=== PATIENT | female | born 1970 | race Caucasian/White ===

== ENCOUNTER 2016-04-21 23:50 | Emergency (ER) | payer OTHER ==
[~2016-04-21] VITALS: Ht 151.1 cm; Wt 142.0 kg
[~2016-04-21 23:50] MED LIST: ADVIN10/60 INH; AZEL30SP NAE; CETITAB27 PO; IBUP-1277 PO; PARO10TA PO; PARO1TAB29 PO
[2016-04-22 00:03] VITALS: BP 160/100; PULSE 95; TEMP 37.1; O2SAT 97; Ht 151.1 cm; Wt 142.0 kg
--- NOTE | 2016-04-22 00:13 | EMERGENCY ROOM VISIT NOTE ---
History Report prepared by Scribbonita: Jacob Jordan Under the Supervision of: Dr. Rell Lee D.O. First contact with patient: 00:02 Chief Complaint: FACIAL PAIN/INJURY Stated Complaint: FACIAL SWELLING - POSSIBLE ABCESS TOOTH History of Present Illness The patient is a 45 year old female who presents to the Emergency Room with complaints of worsening facial swelling on the right side since yesterday. The patient had a dental procedure for a tooth on the right upper side four weeks ago. She had the tooth removed, nerve scraped, and a cone placed. She has a follow up appointment with her dentist in three days. The patient does not have significant dental pain unless she chews food on the right side. She denies any fevers. Source of History: patient Onset: yesterday Position: other (face, right side) Quality: other (swelling) Timing: worsening Associated Symptoms: No fevers Review of Systems See HPI for pertinent positives and negatives. A total of ten systems were reviewed and were otherwise negative. Past Medical & Surgical Medical Problems: (1) Thyroid dysfunction Surgical Problems: (1) H/O removal of cyst Family History FH: cancer FH: diabetes mellitus FH: hypertension FH: seizures Social History Smoking Status: Current Every Day Smoker Alcohol Use: none Marital Status: Housing Status: lives with family Occupation Status: unemployed Current/Historical Medications Scheduled Azelastine Hcl-Fluticasone Pro (Dymista), 2 SPRY TANI BID Cetirizine/Pseudoephedrine (Zyrtec-D Er 5MG/120MG), 1 TAB PO Q12H Clindamycin Hcl (Cleocin), 300 MG PO TID Fluticasone Prop/Salmeterol (Advair Diskus 100/50 60 Dose), 1 PUFFS INH BID Paroxetine (Paxil), 40 MG PO DAILY Paroxetine Hcl (Paxil), 10 MG PO DAILY Scheduled PRN Ibuprofen (Advil), 400-600 MG PO Q6H PRN for Pain or Fever Allergies Coded Allergies: Penicillins (Verified Allergy, Unknown, Unknown, 07/21/15) Reported by PT Vitamin B12 (Verified Adverse Reaction, Intermediate, NEURO SYMPTOMS, 07/20) Codeine (Verified Adverse Reaction, Unknown, Nausea/Vomiting, 07/21/15) Reported by PT Physical Exam Vital Signs Date Time Temp Pulse Resp B/P Pulse Ox O2 Delivery O2 Flow Rate FiO2 04/22/16 00:03 37.1 95 18 160/100 97 Room Air Physical Exam GENERAL: Awake, alert, well-appearing, in no distress HENT: Normocephalic, atraumatic. Facial edema right side with maxillary sinus tenderness. Oropharynx: No angioedema, no obvious gingival abscess, tenderness to the right upper molars with dental bridge present. EYES: Normal conjunctiva. Sclera non-icteric. NECK: Supple. No nuchal rigidity. FROM. No JVD. No lymphadenopathy. RESPIRATORY: Clear to auscultation. CARDIAC: Regular rate, normal rhythm. Extremities warm and well perfused. Pulses equal. ABDOMEN: Soft, non-distended. No tenderness to palpation. No rebound or guarding. No masses. RECTAL: Deferred. MUSCULOSKELETAL: Chest examination reveals no tenderness. The back is symmetrical on inspection without obvious abnormality. There is no CVA tenderness to palpation. No joint edema. LOWER EXTREMITIES: Calves are equal size bilaterally and non-tender. No edema. No discoloration. NEURO: Normal sensorium. No sensory or motor deficits noted. SKIN: No rash or jaundice noted. Medical Decision & Procedures Medications Administered Medications (Trade) Dose Ordered Sig/Heath Route Start Time Stop Time Status Last Admin Dose Admin Clindamycin HCl (Cleocin Cap) 300 mg ONE ONCE PO 04/22/16 00:15 04/22/16 00:16 04/22/16 00:15 300 MG ED Course 0003: The patient was evaluated in room C10. A complete history and physical exam was performed. 0015: Clindamycin HCl 300 mg PO. 0015: Discussed the discharge instructions with the patient. She verbalized understanding. The patient is ready for discharge. Medical Decision Differential diagnosis: Dental caries, pulpitis, gingival abscess, sinusitis. Patient will be treated with antibiotics has follow-up with dentist this week. No signs of sepsis clinically Impression Primary Impression: Dental caries Scribe Attestation The scribe's documentation has been prepared under my direction and personally reviewed by me in its entirety. I confirm that the note above accurately reflects all work, treatment, procedures, and medical decision making performed by me. Departure Information Dispostion Home / Self-Care Prescriptions Clindamycin Hcl (CLEOCIN) 300 Mg Cap 300 MG PO TID for 10 Days, CAP Prov: Rell Lee, DO 04/22/16 Referrals Dante Echeverria M.D. (PCP) Forms HOME CARE DOCUMENTATION FORM, IMPORTANT VISIT INFORMATION Patient Instructions ED Abscess Dental, [facility]
[2016-04-22] MEDS ORDERED: CLINDAMYCIN HCL 150 MG CAP PO ONE (00:15)
[2016-04-22] MEDS ORDERED: CLIN300C2 PO (00:15)
[2016-04-22] MEDS ORDERED: SNG10 PO (00:26)
[2016-04-22] MEDS ORDERED: ATV5X PO (00:27)
[2016-04-22] MEDS ORDERED: ASTN NAE (00:28)
[2016-04-22] MEDS ORDERED: VNTHFA/IN PO (00:28)
== END 2016-04-22 00:23 | disposition home or self-care (01) ==
LOC: C.EDB 23:51 → C.EDC 04-22 00:23
DX: K02.9 Dental caries, unspecified (principal); E07.9 Disorder of thyroid, unspecified; F17.200 Nicotine dependence, unspecified, uncomplicated; Z98.890 Other specified postprocedural states; Z88.0 Allergy status to penicillin; Z88.5 Allergy status to narcotic agent; Z88.8 Allergy status to other drugs, medicaments and biological substances; Z80.9 Family history of malignant neoplasm, unspecified; Z83.3 Family history of diabetes mellitus; Z82.49 Family history of ischemic heart disease and other diseases of the circulatory system; Z82.0 Family history of epilepsy and other diseases of the nervous system

== ENCOUNTER → 2016-06-28 | Outpatient (CLI) | payer OTHER ==
[~2016-06-28] MED LIST changes: +ASTN NAE; +ATV5X PO; -AZEL30SP NAE; +LEVO5TAB7 PO; +NYSTCRE11; +PROB1CAP PO; +RANI300T2 PO; +SNG10 PO; +TRAM-10 PO; +VNTHFA/IN PO; +[UNRECOGNIZED DRUG - OTHER] PO
--- NOTE | 2016-06-28 14:33 | DIAGNOSTIC IMAGING REPORT ---
CT ABDOMEN NO IV/ORAL CONT (CT) CT DOSE: 1113.17 mGy.cm CLINICAL HISTORY: Periumbilical pain and palpable mass. TECHNIQUE: Images the upper abdomen were performed without intravenous or oral contrast. COMPARISON STUDY: None. FINDINGS: The visualized portions of the lung bases are unremarkable. There is hepatic steatosis. No focal hepatic masses are visualized. The liver is enlarged measuring excess of 21 cm in length. No gallbladder abnormalities are visualized. No splenic masses are visualized. No pancreatic masses are visualized in this noncontrast study. No adrenal masses are visualized. No renal calculi are visualized. No renal masses are visualized this noncontrast study. There is no hydronephrosis. There is no evidence of abdominal aortic aneurysm. There is no pathologic bowel dilatation within the upper abdomen. There is no pathologic adenopathy There is rectus diastases. IMPRESSION: 1. Hepatomegaly and hepatic steatosis. 2. No acute findings. Electronically signed by: Oli Pink M.D. 06/28/2016 2:32 PM Dictated Date/Time: 06/28/2016 2:29 PM
== END | disposition home or self-care (01) ==
LOC: C.CTS 14:04
PROVIDERS: ATTEND Internal Medicine
DX: R10.9 Unspecified abdominal pain (principal); K76.0 Fatty (change of) liver, not elsewhere classified

== ENCOUNTER → 2016-07-25 | Outpatient (CLI) | payer OTHER ==
[2016-07-25 18:54] LABS: ALKALINE PHOSPHATASE 76 U/L (45-117); ALT/SGPT 43 U/L (12-78); AST/SGOT 21 U/L (15-37)
== END | disposition home or self-care (01) ==
LOC: C.LABBFT 17:40
PROVIDERS: ATTEND Physician Assistant Medical
DX: K76.0 Fatty (change of) liver, not elsewhere classified (principal)

== ENCOUNTER → 2016-07-31 | Outpatient (CLI) | payer OTHER | LOC: C.RDSM 17:15 | PROVIDERS: ATTEND Physical Medicine & Rehabilitation Sports Medicine | DX: M79.604 Pain in right leg (principal) ==

== ENCOUNTER → 2016-08-01 | Outpatient (CLI) | payer OTHER ==
[2016-08-01 18:07] LABS: URINE APPEARANCE CLEAR (CLEAR); URINE BILIRUBIN NEG (NEG); URINE COLOR YELLOW; URINE EPITHELIAL CELL AUTO >30 /lpf (0-5); URINE NITRITE NEG (NEG); UROBILINOGEN NEG (NEG)
[2016-08-01 18:22] LABS: MANUAL MICROSCOPIC REQUIRED? NO; REVIEW REQ? YES
== END | disposition home or self-care (01) ==
LOC: C.LABBFT 11:48
PROVIDERS: ATTEND Physician Assistant Medical
DX: R39.9 Unspecified symptoms and signs involving the genitourinary system (principal)

== ENCOUNTER → 2016-08-27 | Outpatient (CLI) | payer OTHER ==
[~2016-08-27] MED LIST changes: -LEVO5TAB7 PO; -NYSTCRE11; -PROB1CAP PO; -RANI300T2 PO; -TRAM-10 PO; -[UNRECOGNIZED DRUG - OTHER] PO
[2016-08-27 18:42] LABS: PREG INTERNAL NEGATIVE QC NEG CLEAR BACKGROUND; PREG INTERNAL POSITIVE QC POS CONTROL LINE
[2016-08-30 13:56] LABS: HERPES SIMPLEX CULT SOURCE GENITAL-VULVA; HERPES SIMPLEX VIRUS CULT NOT ISOLATED (NOT ISOLATED)
== END | disposition home or self-care (01) ==
LOC: C.LABSPEC 17:32
PROVIDERS: ATTEND Physician Assistant
DX: N91.2 Amenorrhea, unspecified (principal); N76.0 Acute vaginitis; N76.6 Ulceration of vulva

== ENCOUNTER → 2016-08-27 | Outpatient (CLI) | payer OTHER | END | disposition home or self-care (01) | LOC: C.PAPS 08:46 | PROVIDERS: ATTEND Physician Assistant | DX: Z01.419 Encounter for gynecological examination (general) (routine) without abnormal findings (principal) ==

== ENCOUNTER → 2016-08-27 | Outpatient (CLI) | payer OTHER ==
[2016-08-27 17:12] LABS: PROLACTIN 3.68 ng/mL
[2016-09-04 12:45] LABS: HERPES SIMPLEX AB IGG-2 < 0.90 INDEX (< 0.90); HSV1 AB IGM Negative (Negative); HSV2 AB IGM Negative (Negative)
== END | disposition home or self-care (01) ==
LOC: C.LAB1850 15:17
PROVIDERS: ATTEND Physician Assistant
DX: N76.6 Ulceration of vulva (principal); N91.2 Amenorrhea, unspecified

== ENCOUNTER → 2016-08-28 | Outpatient (CLI) | payer OTHER ==
--- NOTE | 2016-08-29 13:32 | DIAGNOSTIC IMAGING REPORT ---
THORACIC SPINE 3-VIEWS CLINICAL HISTORY: BACK PAIN ASSOCIATED WITH PERIPHERAL NUMBNESS COMPARISON STUDY: No previous studies for comparison. FINDINGS: No acute fractures or subluxations are visualized. There are multilevel degenerative changes with lateral anterior osteophytes. No erosive or destructive changes are visualized. There is a minimal spinal curvature IMPRESSION: Multilevel degenerative change. No fractures or destructive lesions are visualized Electronically signed by: Oli Pink M.D. 08/29/2016 1:30 PM Dictated Date/Time: 08/29/2016 1:29 PM
== END | disposition home or self-care (01) ==
LOC: C.RDSM 14:01
PROVIDERS: ATTEND Physical Medicine & Rehabilitation Sports Medicine
DX: M54.9 Dorsalgia, unspecified (principal)

== ENCOUNTER → 2016-09-17 | Outpatient (CLI) | payer OTHER ==
[2016-09-17 12:24] LABS: BASO % 0.3 %; BASO ABS # 0.02 K/uL (0-0.2); COMPLETE YES; HEMATOCRIT 45.2 % (37-47); IG% 0.3 %; LYMPH % 36.7 %; LYMPH ABS # 2.84 K/uL (1.2-3.4); MEAN CELL VOLUME 84.5 fL (80-100); MEAN CORPUSCULAR HEMOGLOBIN 27.3 pg (25-34); MEAN CORPUSCULAR HGB CONC 32.3 g/dl (32-36); MEAN PLATELET VOLUME 11.2 fL (7.4-10.4); MONO % 6.6 %; NEUT % 52.1 %; PLATELET COUNT 269 K/uL (130-400); RED BLOOD COUNT 5.35 M/uL (4.2-5.4); WHITE BLOOD COUNT 7.74 K/uL (4.8-10.8)
[2016-09-17 18:13] LABS: ALT/SGPT 45 U/L (12-78); BLOOD UREA NITROGEN 7 mg/dl (7-18); BUN/CREATININE RATIO 8.3 (10-20); CALCIUM 9.6 mg/dl (8.5-10.1); CARBON DIOXIDE 29 mmol/L (21-32); CHLORIDE 105 mmol/L (98-107); CREATININE 0.88 mg/dl (0.60-1.20); GLUCOSE 109 mg/dl (70-99); MAGNESIUM 2.4 mg/dl (1.8-2.4); POTASSIUM 4.1 mmol/L (3.5-5.1); SODIUM 140 mmol/L (136-145)
[2016-09-17 18:17] LABS: ALB/GLOB RATIO 1.1 (0.9-2); ALKALINE PHOSPHATASE 81 U/L (45-117); AST/SGOT 24 U/L (15-37); TOTAL IRON BINDING CAPACITY 379 mcg/dl (250-450)
--- NOTE | 2016-09-23 10:58 | CODING QUERY MEDICAL NECESSITY ---
CQSUPPORTING DIAGNOSIS NEEDED A supporting diagnosis is required for the test/procedure performed on this patient in order for us to be reimbursed by the patient's insurance. Please provide a supporting diagnosis for the following test/procedure listed below next to the test name along with your signature. *If there is no additional diagnosis for this patient that would support the following test/procedure please document that below next to the test/procedure. Test(s)/Procedure(s) that require a supporting diagnosis: DOS 09/17/16 VITAMIN D TEST ORDERED BY TONNY RUIZ Provider Signature: Date: Thank you Renae Ordaz Health Information Management Once completed, please kindly fax back to [phone] For questions please call [phone]
== END | disposition home or self-care (01) ==
LOC: C.LABBFT 11:09
PROVIDERS: ATTEND Physician Assistant Medical
DX: R25.2 Cramp and spasm (principal); R53.83 Other fatigue

== ENCOUNTER → 2016-09-19 | Outpatient (CLI) | payer OTHER ==
[2016-09-24 11:53] LABS: HERPES SIMPLEX CULT SOURCE GENITAL-VULVA; HERPES SIMPLEX VIRUS CULT NOT ISOLATED (NOT ISOLATED)
== END | disposition home or self-care (01) ==
LOC: C.LABSPEC 11:42
PROVIDERS: ATTEND Obstetrics & Gynecology
DX: N76.6 Ulceration of vulva (principal); N76.2 Acute vulvitis

== ENCOUNTER → 2016-10-02 | Outpatient (CLI) | payer OTHER ==
--- NOTE | 2016-10-02 10:45 | DIAGNOSTIC IMAGING REPORT ---
Brain MRI WITHOUT CONTRAST HISTORY: R51 Worsening headaches [id number] TECHNIQUE: Multiplanar multisequence MRI of the brain was performed without the use of contrast. COMPARISON STUDY: None. FINDINGS: There are no areas of restricted diffusion to suggest acute infarction. Incidental note is made of a partially empty sella which is considered a normal variant. Otherwise, the midline structures are intact. A few opacified right inferior mastoid air cells. Small retention cysts within the left ethmoid sinus. No fluid levels within the paranasal sinuses. The ventricles and sulci are within normal limits for age. There is no mass, hematoma, midline shift. The major vascular flow-voids at the skull base are well maintained. A 7 mm hypointense subcutaneous nodule at the high convexity of the scalp. This favors a focal calcification or sebaceous cyst. IMPRESSION: No significant intracranial abnormality. Electronically signed by: Adam Yip M.D. 10/02/2016 10:44 AM Dictated Date/Time: 10/02/2016 10:36 AM
== END | disposition home or self-care (01) ==
LOC: C.MRI 09:38
PROVIDERS: ATTEND Psychiatry & Neurology Neurology
DX: R51 Headache (principal)

== ENCOUNTER → 2016-10-16 | Outpatient (CLI) | payer OTHER ==
[2016-10-16 17:38] LABS: BASO % 0.3 %; BASO ABS # 0.03 K/uL (0-0.2); COMPLETE YES; EOS % 2.7 %; IG% 0.2 %; LYMPH % 38.2 %; LYMPH ABS # 3.29 K/uL (1.2-3.4); MEAN CELL VOLUME 84.3 fL (80-100); MEAN CORPUSCULAR HEMOGLOBIN 27.6 pg (25-34); MEAN CORPUSCULAR HGB CONC 32.7 g/dl (32-36); MEAN PLATELET VOLUME 11.7 fL (7.4-10.4); MONO % 4.6 %; PLATELET COUNT 251 K/uL (130-400); RED BLOOD COUNT 5.22 M/uL (4.2-5.4); WHITE BLOOD COUNT 8.61 K/uL (4.8-10.8)
[2016-10-18 15:02] LABS: LATEX CLASS 0; LATEX k UNITS/ML <0.10 KU/L
== END | disposition home or self-care (01) ==
LOC: C.LAB1850 16:07
PROVIDERS: ATTEND Internal Medicine Pulmonary Disease
DX: J45.909 Unspecified asthma, uncomplicated (principal); L29.9 Pruritus, unspecified; L50.1 Idiopathic urticaria

== ENCOUNTER → 2016-10-17 | Outpatient (CLI) | payer OTHER ==
[2016-10-17 12:51] LABS: ESTIMATED AVERAGE GLUCOSE 120 mg/dl; HA1C FLAG Normal (Normal)
[2016-10-17 13:03] LABS: CHOLESTEROL/HDL RATIO 4.6
== END | disposition home or self-care (01) ==
LOC: C.LABBFT 10:27
PROVIDERS: ATTEND Internal Medicine
DX: R73.9 Hyperglycemia, unspecified (principal)

== ENCOUNTER → 2016-11-04 | Outpatient (CLI) | payer OTHER | END | disposition home or self-care (01) | LOC: C.PATHSPEC 17:41 | PROVIDERS: ATTEND Obstetrics & Gynecology | DX: N76.6 Ulceration of vulva (principal) ==

== ENCOUNTER → 2016-11-06 | Outpatient (CLI) | payer OTHER | END | disposition home or self-care (01) | LOC: C.RDSM 14:16 | PROVIDERS: ATTEND Physical Medicine & Rehabilitation Sports Medicine | DX: M79.641 Pain in right hand (principal) ==

== ENCOUNTER → 2017-01-08 | Day surgery (SDC) | payer OTHER ==
[~2017-01-08] VITALS: Ht 147.3 cm; Wt 135.9 kg
[~2017-01-08] MED LIST changes: +FENTANYL CITRATE INJ 50 MCG/1 ML 2 ML VIAL ONE; +LEVO5TAB7 PO; +LIDOCAINE HCL 2% 2 ML VIAL (20MG/ML) ONE; +NYSTCRE11; +PROB1CAP PO; +PROPOFOL IV EMULSION 10 MG/ML 20 ML VIAL IV ONE; +RANI300T2 PO; +SODIUM CHLORIDE 0.9% 500ML 500 ML IV ONE; +TRAM-10 PO; +[UNRECOGNIZED DRUG - OTHER] PO
[2017-01-08 10:41] VITALS: Ht 147.3 cm; Wt 135.9 kg
--- NOTE | 2017-01-08 11:04 | Endo History and Physical ---
"History & Physical Date of Service: Jan 08, 2017. Chief Complaint: DYSPHAGIA Referring Physician: DR. POTTER History of Present Illness 46 yo CF who presents for EGD secondary to dysphagia. Past Medical History Arthritis, Anxiety, Reflux, High Cholesterol, Depression Past Surgical History Hx Cardiac Surgery: No Hx Internal Defibrillator: No Hx Pacemaker: No Hx Abdominal Surgery: Yes (2 C-SECTIONS) Hx of Implantable Prosthesis: No Hx Post-Op Nausea and Vomiting: No Hx Cancer Surgery: Yes (SKIN) Hx Thoracic Surgery: No Hx Orthopedic: Yes (FOOT) Hx Urinary Tract Surgery: No Family History None Social History Smoking Status: Current Some Day Smoker Hx Substance Use: Yes Hx Alcohol Use: No Allergies Coded Allergies: Penicillins (Verified Allergy, Unknown, Unknown, 01/08/17) Reported by PT Vitamin B12 (Verified Adverse Reaction, Intermediate, NEURO SYMPTOMS, ) Codeine (Verified Adverse Reaction, Unknown, Nausea/Vomiting, 01/08/17) Reported by PT Uncoded Allergies: FRAGRANCES (Allergy, Mild, WHEEZES, 01/08/17) LATEX ALLERGY (Allergy, Mild, RASH ITCHING, 01/08/17) SULFA DRUGS (Allergy, Unknown, SWELLING RASH SOB, 01/08/17) Current Medications Reported Home Medications Medications Dose Route/Sig Max Daily Dose Days Date Category Dose Instructions Xyzal Allergy 24Hr (Levocetirizine Dihydrochloride) 5 Mg Tab PO QD 01/08/17 Reported Mycolog || (Nystatin/Triamcinolone Acetonide) Cr PRN 01/08/17 Reported Ultram (Tramadol HCl) 50 Mg Tab 50 Mg PO Q8H PRN 01/08/17 Reported Zantac (Ranitidine HCl) 300 Mg Tab 300 Mg PO QD PRN 01/08/17 Reported Probiotic Complex/Acidoph (Probiotic Product) 1 Cap Cap PO QD 01/08/17 Reported [Vit Dvit D] 6,000 PO PRN 01/08/17 Reported Astelin Nasal [place] (Azelastine Hcl) 200 Sprays/30 Ml [place] 2 Sprays TANI BID 04/22/16 Reported Ventolin Hfa (Albuterol) 200 Puffs/92242 Mcg Aers 2 Puffs PO Q6 PRN 04/22/16 Reported Lorazepam 0.5 Mg Tab 0.5 Mg PO Q6 PRN 3/13/17 Reported Montelukast Sodium (Montelukast Sod) 10 Mg Tab 10 Mg PO HS 04/22/16 Reported Paxil (Paroxetine Hcl) 10 Mg Tab 10 Mg PO DAILY 07/21/15 Reported TAKE WITH THE 40MG TABLET FOR A TOTAL DOSE 50MG Advil (Ibuprofen) 200 Mg Tab 400-600 Mg PO Q6H PRN 06/19/14 Reported Zyrtec-D Er 5MG/120MG (Cetirizine/Pseudoephedrine) Tabcr 1 Tab PO Q12H PRN 06/19/14 Reported Paxil (Paroxetine HCl) 40 Mg Tab 40 Mg PO DAILY 06/19/14 Reported TAKE WITH THE 10MG TABLET FOR A TOTAL DOSE OF 50MG DAILY Vital Signs Weight (Kilograms): 135.91 Height (Feet): 4 Height (Inches): 10 Physical Exam General Appearance: WD/WN, no apparent distress Respiratory/Chest: Auscultation: breath sounds normal Cardiovascular: Heart Auscultation: RRR Abdomen: Bowel Sounds: normal Inspection & Palpation: soft, non-distended, no tenderness, guarding & rebound Assessment and Plan Assessment: 46 yo CF who presents for EGD secondary to dysphagia. Plan: Proceed with EGD"
--- NOTE | 2017-01-08 11:49 | GI REPORT ---
Procedure Date: 01/08/2017 10:43 AM Procedure: Upper GI endoscopy Indications: Dysphagia Medicines: Monitored Anesthesia Care Complications: No immediate complications. Estimated Blood Loss: Estimated blood loss: none. Procedure: Pre-Anesthesia Assessment: - Prior to the procedure, a History and Physical was performed, and patient medications and allergies were reviewed. The patient's tolerance of previous anesthesia was also reviewed. The risks and benefits of the procedure and the sedation options and risks were discussed with the patient. All questions were answered, and informed consent was obtained. Prior Anticoagulants: The patient has taken no previous anticoagulant or antiplatelet agents. ASA Grade Assessment: III - A patient with severe systemic disease. After reviewing the risks and benefits, the patient was deemed in satisfactory condition to undergo the procedure. After obtaining informed consent, the endoscope was passed under direct vision. Throughout the procedure, the patient's blood pressure, pulse, and oxygen saturations were monitored continuously. The scope was introduced through the mouth, and advanced to the second part of duodenum. The upper GI endoscopy was accomplished without difficulty. The patient tolerated the procedure well. Findings: The examined esophagus was normal. A small hiatus hernia was present. The examined duodenum was normal. Impression: - Normal esophagus. - Small hiatus hernia. - Normal examined duodenum. - No specimens collected. Recommendation: - Resume previous diet. - Continue present medications. - Return to primary care physician as previously scheduled. Emanuel Maldonado, 01/08/2017 11:49:22 AM This report has been signed electronically. Note Initiated On: 01/08/2017 10:43 AM I attest to the content of the Intraoperative Record and orders documented therein, exceptions below
--- NOTE | 2017-01-08 11:50 | Discharge Instructions ---
"Endoscopy Patient Instructions Date / Procedure(s) Performed Jan 08, 2017. EGD Allergy Information Coded Allergies: Penicillins (Verified Allergy, Unknown, Unknown, 01/08/17) Reported by PT Vitamin B12 (Verified Adverse Reaction, Intermediate, NEURO SYMPTOMS, ) Codeine (Verified Adverse Reaction, Unknown, Nausea/Vomiting, 01/08/17) Reported by PT Uncoded Allergies: FRAGRANCES (Allergy, Mild, WHEEZES, 01/08/17) LATEX ALLERGY (Allergy, Mild, RASH ITCHING, 01/08/17) SULFA DRUGS (Allergy, Unknown, SWELLING RASH SOB, 01/08/17) Discharge Date / Findings Jan 08, 2017. Hiatal hernia Medication Instructions OK to resume all medications today as prescribed Reported Home Medications Medications Dose Route/Sig Max Daily Dose Days Date Category Dose Instructions Xyzal Allergy 24Hr (Levocetirizine Dihydrochloride) 5 Mg Tab PO QD 01/08/17 Reported Mycolog || (Nystatin/Triamcinolone Acetonide) Cr PRN 01/08/17 Reported Ultram (Tramadol HCl) 50 Mg Tab 50 Mg PO Q8H PRN 01/08/17 Reported Zantac (Ranitidine HCl) 300 Mg Tab 300 Mg PO QD PRN 01/08/17 Reported Probiotic Complex/Acidoph (Probiotic Product) 1 Cap Cap PO QD 01/08/17 Reported [Vit Dvit D] 6,000 PO PRN 01/08/17 Reported Astelin Nasal [place] (Azelastine Hcl) 200 Sprays/30 Ml [place] 2 Sprays TANI BID 04/22/16 Reported Ventolin Hfa (Albuterol) 200 Puffs/85350 Mcg Aers 2 Puffs PO Q6 PRN 04/22/16 Reported Lorazepam 0.5 Mg Tab 0.5 Mg PO Q6 PRN 04/22/16 Reported Montelukast Sodium (Montelukast Sod) 10 Mg Tab 10 Mg PO HS 04/22/16 Reported Paxil (Paroxetine Hcl) 10 Mg Tab 10 Mg PO DAILY 07/21/15 Reported TAKE WITH THE 40MG TABLET FOR A TOTAL DOSE 50MG Advil (Ibuprofen) 200 Mg Tab 400-600 Mg PO Q6H PRN 06/19/14 Reported Zyrtec-D Er 5MG/120MG (Cetirizine/Pseudoephedrine) Tabcr 1 Tab PO Q12H PRN 06/19/14 Reported Paxil (Paroxetine HCl) 40 Mg Tab 40 Mg PO DAILY 06/19/14 Reported TAKE WITH THE 10MG TABLET FOR A TOTAL DOSE OF 50MG DAILY Provider Instructions Activity Restrictions - No exercising or heavy lifting for 24 hours. - Do not drink alcohol the day of the procedure. - Do not drive a car or operate machinery until the day after the procedure. - Do not make any important decisions or sign important papers in 24 hours after the procedure. Following Day: - Return to full activity which may include returning to work/school. Diet Start your diet with liquids and light foods (jello, soup, juice, toast). Then eat your usual diet if not nauseated. Treatment For Common After Affects For mild abdominal pain, bloating, or excessive gas: - Rest - Eat lightly - Lie on right side Follow-Up Information Follow-up with DR. POTTER as scheduled Anesthesia Information What You Should Know You have had a procedure that required some medicine to reduce anxiety and discomfort. This treatment is called moderate sedation. After receiving the treatment, you may be sleepy, but you will be able to breathe on your own. The effects of the treatment may last for several hours. Follow these instructions along with Activity/Diet recommendations noted above: * Do NOT do anything where dizziness or clumsiness would be dangerous. * Rest quietly at home today, then you can be up and about tomorrow. * Have a responsible person stay with you the rest of today. * You may have had an I.V. today. If so, you may take the dressing off later today. Recommendations Call your doctor if: * Trouble breathing * Continuous vomiting for more than 24 hours * Temperature above 101 degrees * Severe abdominal pain or bloating * Pain not relieved by pain medicine ordered * There is increased drainage or redness from any incision * A large amount of rectal bleeding greater than 2-3 tablespoons. (If you had a polyp/s removed or have hemorrhoids, a small amount of blood - from the rectum is to be expected.) * You have any unanswered questions or concerns. IN THE EVENT OF A SERIOUS EMERGENCY, GO TO THE NEAREST EMERGENCY ROOM Your discharge instructions were prepared by provider Emanuel Maldonado. Patient Instructions Signature Page Alaina Coreas Patient (or Guardian) Signature/Date: I have read and understand the instructions given to me by my caregivers. Caregiver/RN/Doctor Signature/Date: The above-named patient and/or guardian has received patient instructions on this date. + Original Patient Signature Page (only) stays with chart. Please make copy for patient."
--- NOTE | 2017-01-08 12:09 | Anesthesiology Progress Note ---
Anesthesia Post Op Note Date & Time Jan 08, 2017 at 12:09 Vital Signs Pain Intensity: 0 Vital Signs Past 12 Hours Date Time Temp Pulse Resp B/P (MAP) Pulse Ox O2 Delivery O2 Flow Rate FiO2 01/08/17 12:05 72 20 158/78 (104) 93 Room Air 01/08/17 11:50 79 18 107/55 (72) 94 Room Air 01/08/17 11:00 36.7 76 20 162/86 (111) 99 Room Air Notes Mental Status: alert / awake / arousable, participated in evaluation Pt Amnestic to Procedure: Yes Nausea / Vomiting: adequately controlled Pain: adequately controlled Airway Patency, RR, SpO2: stable & adequate BP & HR: stable & adequate Hydration State: stable & adequate Anesthetic Complications: no major complications apparent
[2017-01-08 12:20] VITALS: BP 149/73; PULSE 72; O2SAT 93
== END | disposition home or self-care (01) ==
LOC: C.GI 09:52
PROVIDERS: ATTEND Internal Medicine
DX: R13.10 Dysphagia, unspecified (principal); F41.9 Anxiety disorder, unspecified; K21.9 Gastro-esophageal reflux disease without esophagitis; E78.00 Pure hypercholesterolemia, unspecified; F32.9 Major depressive disorder, single episode, unspecified; F17.200 Nicotine dependence, unspecified, uncomplicated; Z88.0 Allergy status to penicillin; G47.33 Obstructive sleep apnea (adult) (pediatric); M19.90 Unspecified osteoarthritis, unspecified site; E66.9 Obesity, unspecified; Q79.6 Ehlers-Danlos syndromes; K44.9 Diaphragmatic hernia without obstruction or gangrene

== ENCOUNTER → 2017-01-20 | Outpatient (CLI) | payer OTHER ==
[~2017-01-20] MED LIST changes: -ADVIN10/60 INH; -FENTANYL CITRATE INJ 50 MCG/1 ML 2 ML VIAL ONE; -IBUP-1277 PO; -LIDOCAINE HCL 2% 2 ML VIAL (20MG/ML) ONE; -PARO10TA PO; -PROPOFOL IV EMULSION 10 MG/ML 20 ML VIAL IV ONE; -SODIUM CHLORIDE 0.9% 500ML 500 ML IV ONE
--- NOTE | 2017-01-21 06:11 | PAP/PSG TECHNICIAN REPORT ---
[facility] Cash On Delivery Clerk Polysomnogram Report Study name: None Report date: 01/21/2017 Study date: 01/20/2017 Referring Physician: Kim Canela PA-C Name: SANDRA SAM Interpreting Physician: Rigoberto Lua M.D. Date of : 1970 Cash On Delivery Clerk: GLENN Godfrey. Sex: Female Age: 46 StudyType: PSG Weight: 306.4 lbs Height: 46 years, Height 4' 11" Neck Circum:16inches BMI: 61.88 Medications: Azelastine HCl 0.1%nasal soln, Wplrsbtlml-XOTM-Xwagdugh 50-325-40mg, Levocetirizine Dihydrochloide 5mg, Lorazepam 0.5mg, Montelukast Sodium 10mg, Paroxetine HCl 40mg, Probiotic, Ranitidine HCL 300mg, Tramadol HCl 50mg, Ventolin HFA 108 mcg/act, Vit D 3 liquid Patient History Study started on room air with ETCO2 monitoring in room 38. 46 yr old morbidly obese female w/multiple medical problems here tonight for a diagnostic psg. She has EDS and snores. She is a smoker. Her medical problems include hypermobility type Moshe-Danlos syndrome, migraines, allergic rhinitis, idiopathic urticaria, asthma, squamous cell carcinoma of upper lip, s/p Mohs surgery 2012, thyromegaly, anxiety w/ depression, carpal tunnel syndrome, reflux, hiatal hernia, fatty liver, HLA b27 positive, neuropathy, osteoarthritis, and vitamin D deficiency. Her WSS=2/24. Neck circ=16inches Parameters Monitored NPSG: E1-M2, E2-M1, Fp1-M2, Fp2-M1, F3-M2, F4-M2, F4-M1, C3-M2, C4-M2, C4-M1, O1-M2, O2-M2, O2-M1, T3-M2, T4-M1, P3-M2, P4-M1, CHIN1, CHIN2, HR, EKG, Legs, PFLOW, SNOR, FLOW, CFLOW, Tidal Volume, THOR, ABDO, SpO2, PLTH, CPRESS, ETCO2 Wave, ETCO2, pH Sleep Architecture Sleep Stages Time at Lights Off 10:25:11 PM STAGES Time (min.) TST (%) Time at Lights On 5:26:41 AM Wake 45.0 -- Total Recording Time (TRT) 421.50 min. N1 17.0 5 Total Sleep Period (TSP) 395.5 min. N2 135.0 36 Total Sleep Time (TST) 376.5min. N3 100.5 27 Awake Time 45.0 min. REM 124.0 33 Wake after Sleep Onset 19.0 min. Sleep Efficiency (SE) 89 % Sleep Onset Latency (YANDY) 26.0 min. Number of Stage 1 Shifts None Awakenings 13 Stage Changes 63 Number of REM periods 8 REM 124.0 33 REM Latency 59.5 min. NREM 252.5 67 Body Position Analysis Supine Right Left Side Prone Vertical Total Sleep Time (min.) 421.5 0.0 0.0 0.00 0.0 0.0 Total Sleep Time (%) 100% 0% 0% 0 0% N/A% Total Sleep Time REM (min.) 124.0 0.0 0.0 None 0.0 0.0 Total Sleep Time NREM (min.) 252.5 0.0 0.0 None 0.0 0.0 Intermittent Wake (min.) 45.0 0.0 0.0 None 0.0 0.0 Total Sleep Period (%) 100% None None None None None Arousals Myoclonus (PLM) * Events Count Index Events Count Index Spontaneous 14 2 Events Awake (PLMW) 71 94.7 Respiratory 0 0.0 Events Asleep w/ Arousal (PLMA) 13 2.1 PLM 13 2 Events Asleep w/o Arousal (PLMS) 114 18.2 Snoring 2 0 Total Asleep 127 20.2 Total 29 5 Total 198 28 Respiratory Analysis * CA OA MA CH H RERA Total Count 0 0 0 0 11 0 11 Index 0.0 0.0 0.0 0 1.8 0 1.8 Mean Duration 0.0 0.0 0.0 0.00 15.1 0.0 15.1 Longest Duration 0.0 0.0 0.0 0.00 0.0 0.0 27.0 Respiratory Event Summary Total Supine ~Supine Right Left Prone REM NREM Apneas Count 0 0 N/A N/A N/A N/A 0 0 Index 0.0 0 N/A N/A N/A N/A 0 0 Hypopneas (4% Desat) Count 11 11 N/A N/A N/A N/A 8 3 Index 1.8 1.8 N/A N/A N/A N/A 3.9 0.7 Apneas & All Hypopneas Count 11 11 N/A N/A N/A N/A 8 3 Index 1.8 2 N/A N/A N/A N/A 3.9 0.7 Respiratory Events (Catalogue Maker+All Hyp+RERA) Count 11 11 N/A N/A N/A N/A 8 3 Index 1.8 2 N/A N/A N/A N/A 3.9 0.7 Respiratory Related Arousal Count 0 11 N/A N/A N/A N/A 0 0 Index 0.0 0 N/A N/A N/A N/A 0 0 Snoring Analysis Supine Right Left Prone REM NREM Total Snore duration 19.8 min Snores count 1,054 N/A N/A N/A 479 575 1,054 Snore mean duration 1.1 Sec Snores index 168 N/A N/A N/A 231.8 136.6 168.0 TST with snoring (%) 5.3% SpO2 Analysis Total REM NREM Awake <50% 0.0 min. 0.0 min. 0.0 min. 0.0 min. 51 - 60% 0.0 min. 0.0 min. 0.0 min. 0.0 min. 61 - 70% 0.0 min. 0.0 min. 0.0 min. 0.0 min. 71 - 80% 0.0 min. 0.0 min. 0.0 min. 0.0 min. 81 - 90% 394.7 min. 121.5 min. 245.9 min. 27.4 min. 91 - 100% 25.2 min. 2.5 min. 6.7 min. 16.0 min. Average 88 88 89 90 Minimum SpO2 81 81 85 85 Desaturation Event Index 5.8 9.2 3.1 13.3 # Desat. Events below 89% 33 19 10 4 Time(%) with Saturation below 89% 53.7 20.1 32.0 1.6 Time(min.) with Saturation below 89% 225.3 84.5 134.3 6.6 Heart Rate Analysis End Tidal CO2 Analysis Min (bpm) Max (bpm) Average (bpm) TSP (mins) % of TSP Awake 74 250 90 Above 55 mmHg 0.0 0.0 NREM 65 112 84 50-55 mmHg 0.2 0.1 REM 70 109 88 45-50 mmHg 242.2 64.3 Overall 65 112 85 40-45 mmHg 133.3 35.4 35-40 mmHg 0.7 0.2 30-35 mmHg 0.1 0.0 Average ETCO2 0.0 Supplemental O2 Values Minimum O2 level: None Value Start Time End Time Cash On Delivery Clerk Comments Mrs. Sam slept in the supine position with the head of her bed elevated and propped up with two pillows. No cardiac arrhythmia noted. Some leg movements were noted. No bruxism noted. Snoring was noted and scored as 2 on a scale of 1 through 5. (0=no snoring, 5=snoring loud enough to be heard through a closed door or down the hallman way). She did not use the restroom during the night. She stated that she slept well. The final report will be interpreted and signed by a sleep physician. The completed physician report will then be placed in the patient medical record. Therapy (cm H2O) 0 TIB (min.) 421.5 TST (min.) 376.5 Sleep Onset (min.) 26.0 REM Onset From Sleep (min.) 59.5 Sleep Efficiency % 89 Wakefulness (%) 11 Wakefulness (min.) 45.0 NREM 1 (%) 5 NREM 1 (min.) 17.0 NREM 2 (%) 36 NREM 2 (min.) 135.0 NREM 3 (%) 27 NREM 3 (min.) 100.5 REM (%) 33 REM (min.) 124.0 # Arousals 29 Arousal Index 5 # Snore 1,054 Snore Index 168.0 AHI 1.8 AHI Supine 2 AHI Non-Supine N/A NREM AHI 0.7 REM AHI 3.9 RDI 1.8 # Obstructive Apnea 0 # Central Apnea 0 # Mixed Apnea 0 # Hypopneas 11 RERAs 0 Total Respiratory Events 12 Time Below SpO2 89% (min.) 218.8 Mean NREM SpO2 (%) 89 Mean REM SpO2 (%) 88 Mean Sleep SpO2 (%) 88 Min NREM SpO2 (%) 85 Min REM SpO2 (%) 81 Position Supine (min.) 421.5 Position Non-supine (min.) 0.0 LM Index Sleep 20.2 LM Index NREM 21.9 LM Index REM 16.9 Mean Heart Rate (bpm) 85 Min Heart Rate (bpm) 65
--- NOTE | 2017-01-22 22:57 | POLYSOMNOGRAPH REPORT ---
CLINICAL DATA: A 46-year-old female with a BMI of 61.9, referred by Kim Canela and myself for a sleep study. She has excessive daytime sleepiness and snoring. She has multiple other medical problems. SLEEP ARCHITECTURE: Total sleep period was 395.5 minutes. Total sleep period was 376.5 minutes divided between 252.5 minutes of non-REM sleep and 124 minutes of REM sleep. Sleep onset latency was 26 minutes. REM latency was 59.5 minutes. Sleep efficiency was 89%. Wake after sleep onset was 19 minutes. Sleep consisted of stage N1 5%, stage N2 36%, stage N3 27% and REM 33%. AROUSAL DATA: Twenty-nine arousals were recorded for an index of 5 per hour. PERIODIC LIMB MOVEMENT DATA: Mildly elevated limb movements during sleep were noted. There were 127 limb movements during sleep noted for an index of 20 per hour with arousal index of 2 per hour. RESPIRATORY DATA: There was no evidence of clinically significant sleep apnea seen. The AHI was 1.8. There were 11 hypopneic episodes with a mean duration of 15.1 seconds. OXIMETRY DATA: Nocturnal hypoxemia was seen. Oxygen roberto carlos was 81%. Mean saturation was 88%. Time below 89% was 225.3 minutes. ELECTROCARDIOGRAM: Heart rates ranged from 65-112 beats per minute. No arrhythmias were noted. SLOT TAG INSERTER'S COMMENTS: The patient slept supine with the head of her bed elevated and propped up on 2 pillows. Snoring was mild, rated 2 on a scale of 1-5. IMPRESSION: 1. No evidence of clinically significant sleep apnea/hypopnea with apnea-hypopnea index of 1.8. 2. Nocturnal hypoxemia with an oxygen roberto carlos of 81% and time below 89% of 225 minutes. 3. Mildly elevated limb movements during sleep. RECOMMENDATIONS: The patient may benefit from nocturnal oxygen. There is nothing here to suggest that CPAP is needed. MTDD
== END | disposition home or self-care (01) ==
LOC: C.NEUR 21:00
PROVIDERS: ATTEND Physician Assistant Medical
DX: R53.83 Other fatigue (principal); E66.01 Morbid (severe) obesity due to excess calories; R06.83 Snoring

== ENCOUNTER → 2017-01-30 | Outpatient (CLI) | payer OTHER ==
[2017-02-04 14:39] LABS: BEEF CLASS 0; BEEF IGE <0.10 KU/L; CHOCOLATE CLASS 0; CHOCOLATE IGE <0.10 KU/L; CLAM CLASS 0; CLAM IGE <0.10 KU/L; CORN CLASS 0; CORN IGE <0.10 KU/L; CRAB CLASS 0; CRAB IGE <0.10 KU/L; EGG MIX CLASS 0; EGG MIX IGE <0.10 KU/L; LOBSTER CLASS 0; LOBSTER IGE <0.10 KU/L; PEANUT IGE <0.10 KU/L; PORK CLASS 0; PORK IGE <0.10 KU/L; SHRIMP CLASS 0; SOY CLASS 0; SOY IGE <0.10 KU/L; TRYPTASE**TC 34484X 5 ng/mL (<11); WHEAT CLASS 0; WHEAT IGE <0.10 KU/L
[2017-02-05 04:31] LABS: REFERENCE QUEST TEST REPORT
== END | disposition home or self-care (01) ==
LOC: C.LAB1850 14:31
PROVIDERS: ATTEND Physician Assistant Medical
DX: J30.9 Allergic rhinitis, unspecified (principal); J45.909 Unspecified asthma, uncomplicated; L50.1 Idiopathic urticaria; L29.9 Pruritus, unspecified

== ENCOUNTER → 2017-02-27 | Outpatient (CLI) | payer OTHER | END | disposition home or self-care (01) | LOC: C.RAD 10:58 | DX: K21.9 Gastro-esophageal reflux disease without esophagitis (principal) ==

== ENCOUNTER 2017-04-05 20:54 | Emergency (ER) | payer OTHER ==
[~2017-04-05] VITALS: Ht 149.9 cm; Wt 135.0 kg
[2017-04-05 21:03] VITALS: TEMP 36.7; Ht 149.9 cm; Wt 135.0 kg
--- NOTE | 2017-04-05 22:31 | DIAGNOSTIC IMAGING REPORT ---
R FOOT MIN 3 VIEWS ROUTINE CLINICAL HISTORY: Right foot pain status post trauma COMPARISON: None. DISCUSSION: Postsurgical changes involve the first and second metatarsal heads. There is a second metatarsal head spur. There is Achilles insertional calcification. There are no acute fractures. IMPRESSION: Postsurgical change. No acute fractures. Electronically signed by: Oli Pink M.D. 04/05/2017 10:29 PM Dictated Date/Time: 04/05/2017 10:28 PM
[2017-04-05 23:07] VITALS: BP 138/67; PULSE 79; O2SAT 98
--- NOTE | 2017-04-06 01:36 | EMERGENCY ROOM VISIT NOTE ---
"History First contact with patient: 21:25 Chief Complaint: FOOT PAIN Stated Complaint: EXTREME PAIN TOP OF R FOOT,FALL History of Present Illness The patient is a 46 year old female who presents to the Emergency Room with complaints of right dorsal foot pain. The patient has a history of Erlos- Danlos syndrome, and falls frequently. She is currently under the management of Dr. Benavides, [facility], and the [facility]. The patient also has some mild discomfort of the left knee, left elbow and right hand, but does not feel that further imaging studies are needed of these sites. The patient reports a history of peripheral neuropathy, but reports that she still has notable right midfoot discomfort with ambulation. She rates her pain a 4 out of 10. Review of Systems 10 system review was performed and was negative except for pertinent positives and negatives as indicated in history of present illness Past Medical/Surgical History Medical Problems: (1) Thyroid dysfunction Surgical Problems: (1) H/O removal of cyst Medical Problems: (1) Diaphragmatic Hernia (2) Moshe-Danlos Syndrome (3) Hyperlipidemia, Unspecified (4) Hypothyroidism, Unspecified (5) Major Depressive Disorder, Single Episode, Unspecified (6) Morbid obesity with BMI of 60.0-69.9, adult (7) Obstructive Sleep Apnea (Adult) (Pediatric) (8) Reflux Esophagitis (9) Thyroid dysfunction (10) Vitamin D Deficiency, Unspecified Surgical Problems: (1) H/O removal of cyst Family History FH: cancer FH: diabetes mellitus FH: hypertension FH: seizures Social History Smoking Status: Current Every Day Smoker Alcohol Use: none Marital Status: Housing Status: lives with family Occupation Status: unemployed Current/Historical Medications Scheduled Azelastine Hcl (Astelin Nasal [place]), 2 SPRAYS TANI BID Levocetirizine Dihydrochloride (Xyzal Allergy 24Hr), PO QD Montelukast Sod (Montelukast Sodium), 10 MG PO HS Paroxetine (Paxil), 40 MG PO DAILY Probiotic Product (Probiotic Complex/Acidoph), PO QD Scheduled PRN Albuterol Hfa (Ventolin Hfa), 2 PUFFS PO Q6 PRN for SOB/Wheezing Cetirizine/Pseudoephedrine (Zyrtec-D Er 5MG/120MG), 1 TAB PO Q12H PRN for Nasal Congestion Lorazepam (Lorazepam), 0.5 MG PO Q6 PRN for Anxiety Nystatin/Triamcinolone (Mycolog ||), for YEAST Ranitidine (Zantac), 300 MG PO QD PRN for BID Tramadol (Ultram), 50 MG PO Q8H PRN for Pain [Vit Dvit D], 6,000 PO for QD Physical Exam Vital Signs Date Time Temp Pulse Resp B/P (MAP) Pulse Ox O2 Delivery O2 Flow Rate FiO2 04/05/17 23:07 79 16 138/67 98 04/05/17 21:03 36.7 86 18 121/76 95 Room Air Physical Exam CONSTITUTIONAL: Morbidly obese female, alert and oriented X 3 with positive affect. Patient does not appear in any acute distress on exam. HEENT: Normocephalic, atraumatic. Pupils equal, round and reactive. NECK: Full active range of motion without discomfort. MUSCULOSKELETAL: Examination shows tenderness to palpation across the right dorsal foot. She has minimal discomfort with subtalar motion. No focal tenderness to palpation through the plantar metatarsal region, calcaneus, Achilles tendon or phalanges. Capillary refill is less than 2 seconds. The patient deferred exam of other areas of discomfort. INTEGUMENTARY: No rash or other significant dermatologic conditions noted. NEUROLOGIC: Right foot and toes are grossly sensory intact. Medical Decision & Procedures ER Provider Diagnostic Interpretation: My interpretation of right foot x-rays does not show any obvious acute fractures. Postoperative changes are noted. Radiologist report is as follows: R FOOT MIN 3 VIEWS ROUTINE CLINICAL HISTORY: Right foot pain status post trauma COMPARISON: None. DISCUSSION: Postsurgical changes involve the first and second metatarsal heads. There is a second metatarsal head spur. There is Achilles insertional calcification. There are no acute fractures. IMPRESSION: Postsurgical change. No acute fractures. ED Course Patient history and physical exam were performed. Nurse's notes were reviewed. Vital signs were reviewed and were normal. The patient did not appear in any significant distress. The patient requested an x-ray only of her right foot. X -rays were performed and were normal. The patient was advised of her findings, and encouraged to follow-up with [facility] for further reevaluation and management. It is also noted that the patient was recently scheduled for nerve blocks through the [facility] pain clinic. The patient reports that she showed up without a ride, therefore she had to be rescheduled. She was encouraged to also continue with them for further back pain management. The patient was encouraged to take Ultram as needed for her pain. Review of the [facility] Drug Monitoring Program shows that she receives these Ultram prescriptions without any red flags noted. The patient was happy with plan of care, and voiced understanding of all discharge instructions. Medical Decision [place] Drug Monitoring Program Search Results: patient reviewed within database, see additional documentation Medication Reconcilliation Current Medication List: was personally reviewed by me Blood Pressure Screening Patient's blood pressure: Normal blood pressure Impression Primary Impression: Right foot pain Additional Impressions: Moshe-Danlos syndrome Frequent falls Departure Information Dispostion Home / Self-Care Condition FAIR Referrals Dante Echeverria M.D. (PCP) Getachew Benavides M.D. Forms HOME CARE DOCUMENTATION FORM, IMPORTANT VISIT INFORMATION Patient Instructions My [place] Additional Instructions Intermittently apply ice and elevate foot as needed for swelling and pain. Continue with your home Ultram if needed for additional pain relief. Follow-up with Dr. Benavides as needed for further management. Problem Qualifiers"
== END 2017-04-05 23:07 | disposition home or self-care (01) ==
LOC: C.EDB 20:58 → C.EDD 23:07
DX: M79.671 Pain in right foot (principal); Q79.6 Ehlers-Danlos syndromes; W19.XXXA Unspecified fall, initial encounter; E78.5 Hyperlipidemia, unspecified; E03.9 Hypothyroidism, unspecified; F32.9 Major depressive disorder, single episode, unspecified; E66.9 Obesity, unspecified; G47.33 Obstructive sleep apnea (adult) (pediatric); K21.9 Gastro-esophageal reflux disease without esophagitis; Z83.3 Family history of diabetes mellitus; Z82.49 Family history of ischemic heart disease and other diseases of the circulatory system; Z82.0 Family history of epilepsy and other diseases of the nervous system; F17.200 Nicotine dependence, unspecified, uncomplicated

== ENCOUNTER 2017-06-12 11:39 | Inpatient (IN) | payer OTHER ==
[~2017-06-12] VITALS: Ht 149.9 cm; Wt 141.1 kg
[2017-06-12] MEDS ORDERED: ALBUT/IPRATROP 3MG/0.5MG NEB 3 ML VIAL INH STA ×2 (12:01→14:11)
[2017-06-12] MEDS ORDERED: METHYLPREDNISOLONE 125 MG VIAL IV STA (12:03)
--- NOTE | 2017-06-12 12:16 | EMERGENCY ROOM VISIT NOTE ---
History Report prepared by Stuibbonita: Hui Tyler Under the Supervision of: Dr. Norman Montero D.O. First contact with patient: 11:57 Chief Complaint: SHORTNESS OF BREATH Stated Complaint: BREATHING DIFFICULTY Nursing Triage Summary: Patient arrived via ems from home with complaints of SOB on exertion. Recently diagnosed with bronchitis, sinus infection, and ear infection this past Friday ; pt reports taking 2 days worth of antibiotics. Occasional cough, chest congestion. PT appears to get SOB while talking. Sats were 93% on room air on arrival but dropped to 89% while talking. EMS admin 1 duoneb. PT reports she wears 2L NC at night. History of Present Illness The patient is a 47 year old female who presents to the Emergency Room with complaints of worsening shortness of breath for the past 5 days. She was brought to the ED via EMS. Her Oxygen saturation was 93% on room air on EMS arrival, but dropped to 89%. EMS gave her 1 DuoNeb which provided good relief. She notes she wears 2 L NC at night. The patient reports she was recently diagnosed with bronchitis, an ear infection and sinus infection and was placed on Azithromycin. She has developed "wheezy" breathing and a productive cough and has been using a nebulizer with minimal relief. She complains of minimal chest pain. She denies any history of PE or DVT. She denies any recent swelling in her legs. 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 A total of 10 systems reviewed and were otherwise negative. Past Medical & Surgical Medical Problems: (1) Diaphragmatic Hernia (2) Moshe-Danlos Syndrome (3) Hyperlipidemia, Unspecified (4) Hypothyroidism, Unspecified (5) Major Depressive Disorder, Single Episode, Unspecified (6) Morbid obesity with BMI of 60.0-69.9, adult (7) Obstructive Sleep Apnea (Adult) (Pediatric) (8) Reflux Esophagitis (9) Thyroid dysfunction (10) Vitamin D Deficiency, Unspecified Surgical Problems: (1) H/O removal of cyst Family History FH: cancer FH: diabetes mellitus FH: hypertension FH: seizures Social History Smoking Status: Former Smoker Alcohol Use: none Drug Use: none Marital Status: Housing Status: lives with family Occupation Status: unemployed Current/Historical Medications Scheduled Azelastine Hcl (Astelin Nasal [place]), 2 SPRAYS TANI BID Azithromycin (Zithromax), 250 CAP PO DIRECTED Levocetirizine Dihydrochloride (Xyzal Allergy 24Hr), PO QD Montelukast Sod (Montelukast Sodium), 10 MG PO HS Omeprazole (Prilosec), 20 CAP PO DAILY Paroxetine (Paxil), 40 MG PO DAILY Probiotic Product (Probiotic Complex/Acidoph), PO QD Scheduled PRN Albuterol Hfa (Ventolin Hfa), 2 PUFFS PO Q6 PRN for SOB/Wheezing Lorazepam (Lorazepam), 0.5 MG PO Q6 PRN for Anxiety Nystatin/Triamcinolone (Mycolog ||), for YEAST Ranitidine (Zantac), 300 MG PO QD PRN for BID Tramadol (Ultram), 50 MG PO Q8H PRN for Pain [Vit Dvit D], 6,000 PO for QD Allergies Coded Allergies: Ibuprofen (Unverified Allergy, Unknown, UNKNOWN, 06/12/17) Penicillins (Verified Allergy, Unknown, Unknown, 01/08/17) Reported by PT Uncoded Nonscreenable Allergen (Unverified Allergy, Unknown, ORAL STEROIDS , 06/12/17) Vitamin B12 (Verified Adverse Reaction, Intermediate, NEURO SYMPTOMS, ) Codeine (Verified Adverse Reaction, Unknown, Nausea/Vomiting, 01/08/17) Reported by PT Uncoded Allergies: FRAGRANCES (Allergy, Mild, WHEEZES, 01/08/17) LATEX ALLERGY (Allergy, Mild, RASH ITCHING, 01/08/17) SULFA DRUGS (Allergy, Unknown, SWELLING RASH SOB, 01/08/17) Physical Exam Vital Signs Date Time Temp Pulse Resp B/P (MAP) Pulse Ox O2 Delivery O2 Flow Rate FiO2 06/12/17 14:13 90 Room Air 06/12/17 13:36 79 19 94 Nasal Cannula 2.0 06/12/17 12:25 73 06/12/17 11:53 95 Nasal Cannula 2.0 06/12/17 11:50 89 Room Air 06/12/17 11:46 93 Room Air 06/12/17 11:46 36.9 77 28 133/77 93 Room Air 06/12/17 11:46 93 Room Air Physical Exam GENERAL: Patient is awake, alert in no acute distress patient is resting comfortably and showing no signs of anxiety EYES: The conjunctivae are clear. The pupils are round and reactive. EARS, NOSE, MOUTH AND THROAT: The nose is without any evidence of any deformity. Mucous membranes are moist tongue is midline NECK: The neck is nontender and supple. RESPIRATORY: Lung sounds were diminished throughout with scattered expiratory wheezing in all demarco. Rales in the left base, poor airway movement noted. CARDIOVASCULAR: Regular rate and rhythm noted there no murmurs rubs or gallops normal S1 normal S2 GASTROINTESTINAL: The abdomen is soft. Bowel sounds are present in all quadrants. Abdomen is nontender PELVIS: The Pelvis is stable. No tenderness to palpation is noted. BACK: No midline tenderness or or step-off noted range of motion in flexion extension as well as rotation no signs of muscle spasm noted MUSCULOSKELETAL/EXTREMITIES: There is no evidence of gross deformity full range of motion is noted in the hips and shoulders SKIN: There is no obvious evidence of any rash. There are no petechiae, pallor or cyanosis noted. NEUROLOGIC: Patient is awake alert and oriented x3 Medical Decision & Procedures ER Provider Diagnostic Interpretation: Radiology results as stated below per my review and radiologist interpretation: CHEST ONE VIEW PORTABLE CLINICAL HISTORY: EVALUATE RESPIRATORY DISTRESS.DYSPNEA dyspnea COMPARISON STUDY: 12/28/2014 FINDINGS: Mild cardiomegaly. Increased prominence of the pulmonary vasculature. Diaphragms are smooth. Very slight blunting left lateral costophrenic angle. IMPRESSION: Congestive heart failure The above report was generated using voice recognition software. It may contain grammatical, syntax or spelling errors. Electronically signed by: Mario Lopez M.D. 06/12/2017 12:33 PM Laboratory Results 06/12/17 12:44 Red Blood Count 4.91, Mean Corpuscular Volume 83.1, Mean Corpuscular Hemoglobin 27.5, Mean Corpuscular Hemoglobin Concent 33.1, Mean Platelet Volume 11.2, Neutrophils (%) (Auto) 47.2, Lymphocytes (%) (Auto) 40.9, Monocytes (%) (Auto) 8.4, Eosinophils (%) (Auto) 2.7, Basophils (%) (Auto) 0.4, Neutrophils # (Auto) 4.42, Lymphocytes # (Auto) 3.84, Monocytes # (Auto) 0.79, Eosinophils # (Auto) 0.25, Basophils # (Auto) 0.04 06/12/17 12:44 Test 06/12/17 12:16 06/12/17 12:44 06/12/17 12:50 06/12/17 14:10 Influenza Type A (RT-PCR) Neg for Influ A (NEG) Influenza Type B (RT-PCR) Neg for Influ B (NEG) White Blood Count 9.38 K/uL (4.8-10.8) Red Blood Count 4.91 M/uL (4.2-5.4) Hemoglobin 13.5 g/dL (12.0-16.0) Hematocrit 40.8 % (37-47) Mean Corpuscular Volume 83.1 fL (80-100) Mean Corpuscular Hemoglobin 27.5 pg (25-34) Mean Corpuscular Hemoglobin Concent 33.1 g/dl (32-36) Platelet Count 258 K/uL (130-400) Mean Platelet Volume 11.2 fL (7.4-10.4) Neutrophils (%) (Auto) 47.2 % Lymphocytes (%) (Auto) 40.9 % Monocytes (%) (Auto) 8.4 % Eosinophils (%) (Auto) 2.7 % Basophils (%) (Auto) 0.4 % Neutrophils # (Auto) 4.42 K/uL (1.4-6.5) Lymphocytes # (Auto) 3.84 K/uL (1.2-3.4) Monocytes # (Auto) 0.79 K/uL (0.11-0.59) Eosinophils # (Auto) 0.25 K/uL (0-0.5) Basophils # (Auto) 0.04 K/uL (0-0.2) RDW Standard Deviation 43.2 fL (36.4-46.3) RDW Coefficient of Variation 14.2 % (11.5-14.5) Immature Granulocyte % (Auto) 0.4 % Immature Granulocyte # (Auto) 0.04 K/uL (0.00-0.02) Prothrombin Time 11.1 SECONDS (9.0-12.0) Prothromb Time International Ratio 1.1 (0.9-1.1) Activated Partial Thromboplast Time 25.0 SECONDS (21.0-31.0) Partial Thromboplastin Ratio 1.0 Anion Gap 5.0 mmol/L (3-11) Est Creatinine Clear Calc Drug Dose 107.6 ml/min Estimated GFR () 94.6 Estimated GFR (Non- 81.6 BUN/Creatinine Ratio 12.4 (10-20) Calcium Level 8.9 mg/dl (8.5-10.1) Total Bilirubin 0.7 mg/dl (0.2-1) Aspartate Amino Transf (AST/SGOT) 18 U/L (15-37) Alanine Aminotransferase (ALT/SGPT) 33 U/L (12-78) Alkaline Phosphatase 77 U/L (45-117) Troponin I < 0.015 ng/ml (0-0.045) C-Reactive Protein 2.34 mg/dl (0-0.29) Total Protein 7.4 gm/dl (6.4-8.2) Albumin 3.6 gm/dl (3.4-5.0) Globulin 3.8 gm/dl (2.5-4.0) Albumin/Globulin Ratio 0.9 (0.9-2) Human Chorionic Gonadotropin, Qual NEG (NEG) Bedside D-Dimer 306 ng/mlFEU (0-450) Urine Color YELLOW Urine Appearance CLEAR (CLEAR) Urine pH 6.0 (4.5-7.5) Urine Specific [place] 1.026 (1.000-1.030) Urine Protein NEG (NEG) Urine Glucose (UA) NEG (NEG) Urine Ketones NEG (NEG) Urine Occult Blood NEG (NEG) Urine Nitrite NEG (NEG) Urine Bilirubin NEG (NEG) Urine Urobilinogen NEG (NEG) Urine Leukocyte Esterase NEG (NEG) Laboratory results per my review. Medications Administered Medications (Trade) Dose Ordered Sig/Heath Route Start Time Stop Time Status Last Admin Dose Admin Albuterol/ Ipratropium (Duoneb) 3 ml NOW STAT INH 06/12/17 12:01 06/12/17 12:02 DC 06/12/17 12:25 3 ML Methylprednisolone Sodium Succinate (Solu-Medrol IV) 125 mg NOW STAT IV 06/12/17 12:03 06/12/17 12:04 DC 06/12/17 12:25 125 MG Albuterol/ Ipratropium (Duoneb) 3 ml NOW STAT INH 06/12/17 14:11 06/12/17 14:12 DC 06/12/17 14:29 3 ML ECG Per My Interpretation Indication: SOB/dyspnea Rate (beats per minute): 67 Rhythm: normal sinus Findings: no ectopy, other (No acute ST segments) Change: no significant change (No change from EKG on 12/28/2014) ED Course 1200: The patient was evaluated in room C5. A complete history and physical examination were performed. 1201: DuoNeb 3 ml INH. 1203: Solu-Medrol 125 mg IV. 1400: I asked nursing to do an ambulation trial on the patient. They will let me know how she does. 1411: Nursing informed me the patient desaturated during her ambulation trial. 1411: DuoNeb 3 ml INH. 1415: I reevaluated the patient. She is resting comfortably. I discussed my recommendation she remain in the hospital for further evaluation and management and she verbal complete understanding and agreement. 1430: I discussed the patients case with Dr. Paniagua[facility] The patient will be further evaluated. Medical Decision Prior records/ancillary studies reviewed. Triage Nursing notes reviewed. Additional history obtained from the family. The patient's history was concerning for respiratory difficulties. Differential diagnosis: Etiologies such as infections, reactive airway disease, pneumonia, pneumothorax , COPD, CHF, cardiac ischemia, pulmonary embolism, musculoskeletal, gastrointestinal, as well as others were entertained. The patient is a 47-year-old female who presented to the emergency department by ambulance from her primary care physician's office for shortness of breath. The patient has had ongoing symptoms and was treated with bronchodilators. She also recently started on Zithromax. The patient did not have a fever but had significant findings consistent with bronchospasm as well as hypoxia. She was treated with IV steroids and bronchodilator therapy. On subsequent reevaluation she was much more comfortable but continued to have significant exertional dyspnea and hypoxia. I discussed the patient's laboratory and radiographic studies with her. I discussed her case with the on-call [facility] hospitalist. They have agreed to evaluate the patient in the emergency department for further management and disposition. Medication Reconcilliation Current Medication List: was personally reviewed by me Blood Pressure Screening Patient's blood pressure: Normal blood pressure Blood pressure disposition: Did not require urgent referral Consults Time Called: 1415 Consulting Physician: Gianna Thompson Hospitalist Returned Call: 1430 I discussed the patients case with Gianna Thompson Hospitalist. The patient will be further evaluated. Impression Primary Impression: SOB (shortness of breath) Additional Impressions: Bronchitis Hypoxia Scribe Attestation The scribe's documentation has been prepared under my direction and personally reviewed by me in its entirety. I confirm that the note above accurately reflects all work, treatment, procedures, and medical decision making performed by me. Departure Information Dispostion Being Evaluated By Hospitalist Referrals Dante Echeverria M.D. (PCP) Patient Instructions My [facility] Problem Qualifiers
--- NOTE | 2017-06-12 12:35 | DIAGNOSTIC IMAGING REPORT ---
CHEST ONE VIEW PORTABLE CLINICAL HISTORY: EVALUATE RESPIRATORY DISTRESS.DYSPNEA dyspnea COMPARISON STUDY: 12/28/2014 FINDINGS: Mild cardiomegaly. Increased prominence of the pulmonary vasculature. Diaphragms are smooth. Very slight blunting left lateral costophrenic angle. IMPRESSION: Congestive heart failure The above report was generated using voice recognition software. It may contain grammatical, syntax or spelling errors. Electronically signed by: Mario Lopez M.D. 06/12/2017 12:33 PM Dictated Date/Time: 06/12/2017 12:33 PM
[2017-06-12] MEDS ORDERED: OMEP20CA9 PO (12:42)
[2017-06-12] MEDS ORDERED: AZIT250T PO (12:42)
[2017-06-12 13:13] LABS: BASO % 0.4 %; BASO ABS # 0.04 K/uL (0-0.2); EOS % 2.7 %; EOS ABS # 0.25 K/uL (0-0.5); HEMATOCRIT 40.8 % (37-47); HEMOGLOBIN 13.5 g/dL (12.0-16.0); IG# 0.04 K/uL (0.00-0.02); LYMPH % 40.9 %; LYMPH ABS # 3.84 K/uL (1.2-3.4); MEAN CELL VOLUME 83.1 fL (80-100); MEAN CORPUSCULAR HEMOGLOBIN 27.5 pg (25-34); MEAN CORPUSCULAR HGB CONC 33.1 g/dl (32-36); MEAN PLATELET VOLUME 11.2 fL (7.4-10.4); MONO % 8.4 %; MONO ABS # 0.79 K/uL (0.11-0.59); NEUT % 47.2 %; NEUT ABS # 4.42 K/uL (1.4-6.5); PLATELET COUNT 258 K/uL (130-400); RED CELL DISTRIBUTION WIDTH CV 14.2 % (11.5-14.5); RED CELL DISTRIBUTION WIDTH SD 43.2 fL (36.4-46.3); WHITE BLOOD COUNT 9.38 K/uL (4.8-10.8)
[2017-06-12 13:19] LABS: INR 1.1 (0.9-1.1)
[2017-06-12 13:21] LABS: ALBUMIN 3.6 gm/dl (3.4-5.0); ALT/SGPT 33 U/L (12-78); AST/SGOT 18 U/L (15-37); BLOOD UREA NITROGEN 11 mg/dl (7-18); CALCIUM 8.9 mg/dl (8.5-10.1); CARBON DIOXIDE 27 mmol/L (21-32); CREATININE 0.86 mg/dl (0.60-1.20); GLUCOSE 122 mg/dl (70-99); POTASSIUM 3.8 mmol/L (3.5-5.1); SODIUM 138 mmol/L (136-145)
[2017-06-12 13:26] LABS: ALKALINE PHOSPHATASE 77 U/L (45-117); TOTAL PROTEIN 7.4 gm/dl (6.4-8.2)
[2017-06-12 13:41] LABS: INFLUENZA A PCR Neg for Influ A (NEG); INFLUENZA B PCR Neg for Influ B (NEG)
[2017-06-12] MEDS ORDERED: NYSTATIN/TRIAMCINOLONE CR 15 GM TUBE EXT PRN (15:30)
[2017-06-12] MEDS ORDERED: POLYETHYLENE (MIRALAX) 17 GM PACK PO PRN (15:30)
[2017-06-12] MEDS ORDERED: TRAMADOL HCL 50 MG TAB PO PRN (15:30)
[2017-06-12] MEDS ORDERED: ALUMINUM/MAGNESIUM/SIMETH (MAALOX MAX) 30 ML UDC PO PRN (15:30)
[2017-06-12] MEDS ORDERED: MAGNESIUM HYDROXIDE SUSP 30 ML UDC PO PRN (15:30)
[2017-06-12] MEDS ORDERED: ZOLPIDEM TARTRATE 5 MG TAB PO PRN (15:30)
[2017-06-12] MEDS ORDERED: ONDANSETRON INJ 2 MG/ML 2 ML VIAL IV PRN (15:30)
--- NOTE | 2017-06-12 16:05 | History and Physical ---
History & Physical Date of Service June 12, 2017. History & Physical possible copd exac with hx of asthma and tob abuse, h&P dictated
--- NOTE | 2017-06-12 16:55 | HISTORY & PHYSICAL EXAMINATION ---
DATE OF ADMISSION: 06/12/2017 CHIEF COMPLAINT: Worsening shortness of breath, cough, and yellow-green sputum for several days. HISTORY OF PRESENT ILLNESS: The patient is a 47-year-old white female with a significant past medical history of diaphragmatic hernia, Moshe-Danlos syndrome, dyslipidemia, hypothyroidism, depression, morbid obesity, obstructive sleep apnea, GERD, thyroid dysfunction, vitamin D deficiency, came in to the hospital Emergency Department because of the above chief complaint. The patient arrived from home complaining about worsening shortness of breath on exertion. Recently has had the bronchitis, sinus infection, and ear infection in past Friday. She was seen by PCP, took antibiotic Azithromycin for 2 days. The ear infection possibly is getting better; however, the cough is getting more worse with yellow and green sputum. Reported obviously shortness of breath while talking or walking. She reported to the physician and had come to the hospital Emergency Room through EMS. During the EMS, she was getting 1 dose of DuoNeb. She does not need oxygen at daytime but at nighttime, she needs oxygen. She reported also has wheezing, sometimes chest tightness, especially when coughing, obvious chest tightness. Denied chest pain. Denied history of DVT or PE. There was no calf pain or any swelling in the lower extremities. When I interviewed her, she was awake, alert, and oriented confirming the above information. Denied fever or chills. Denied chest pain, palpitation, or lower extremity swelling. Denied nausea, vomiting, abdominal pain, diarrhea, or constipation. Denied dysuria, urgency, or frequencies. Denied facial droop, slurry speeches, or skin rashes. ALLERGIES: CODEINE, FRAGRANCES, IBUPROFEN, LATEX, PENICILLIN, SULFA, VITAMIN B12. PAST MEDICAL HISTORY: Like I mentioned above includes diaphragmatic hernia, Moshe-Danlos syndrome, dyslipidemia, hypothyroidism, depression, morbid obesity, BMI 60, obstructive sleep apnea, GERD, thyroid dysfunction, vitamin D deficiency. PAST SURGICAL HISTORY: Includes cyst removal. FAMILY HISTORY: Includes cancer, diabetes, hypertension, seizure, SOCIAL HISTORY: Remote smoking history. Denied alcohol abuse disorder, denied illicit drug abuse. MEDICATIONS: Taken at home currently include Astelin nasal spray 2 sprays b.i.d., azithromycin 250 mg use as instructed, Xyzal 24-hour p.o. daily, Singulair 10 mg p.o. at bedtime, Prilosec 20 mg p.o. daily, Paxil 40 mg p.o. daily, probiotic 1 tablet p.o. q.i.d. As needed medications include albuterol 2 puffs q.6 p.r.n. for shortness of breath or wheezing, olanzapine 0.5 mg p.o. q.6 h. p.r.n. for anxiety, nystatin for yeast, Zantac 300 mg p.o. daily p.r.n. or b.i.d., Ultram 50 mg p.o. q.8 h. p.r.n. for the pain, vitamin D 6000 units p.o. daily. REVIEW OF SYSTEMS: Please see HPI, otherwise 14 point organ systems review negative. PHYSICAL EXAMINATION: VITAL SIGNS: Temperature 36.9, pulse 77, respiratory rate 28 initially, currently is 19, blood pressure 137/76, pulse oximetry is 93% on room air. Morbid obesity, BMI is 62. GENERAL: The patient is a white female, awake, alert, oriented, conversational, follows all commands. HEENT: Head is normocephalic. Pupils equal, round, responsive to light. Ears are normal. Nose is normal. NECK: Supple. LUNGS: Bilateral lungs with decreased breathing sounds. There was sporadic wheezing diffusely. There were no crackles. CARDIOVASCULAR: Heart was regular rhythm. S1 and S2. There was no murmur, no gallop, and no rub. GASTROINTESTINAL: Abdomen is obese, nontender. Bowel sounds positive. Bilateral CVA was nontender. GENITOURINARY/RECTAL: Deferred. EXTREMITIES: Bilateral lower extremities: No swelling. Mary sign was negative. Calf was nontender. MUSCULOSKELETAL: Midline of the back has no pain. There was no limited range of motion. SKIN: No rashes. NEUROLOGIC: Cranial nerves II through XII were intact. IMAGING: Chest x-ray studies show possible congestive heart failure with the increased prominence of pulmonary congestions. LABORATORY STUDIES: WBC 9, hemoglobin 13, platelets 258. BUN 11, creatinine 0.8. Blood glucose 122. Sodium 138, potassium is 3.8. Liver function test was not remarkable. Cardiac enzymes: Troponin was negative x1. CRP was 2.3. UA was not remarkable, no UTI. In the ER, she got Solu-Medrol 125 mg 1 dose and DuoNeb treatment. EKGs showed normal sinus rhythm, no ST-T phase changes. No recent changes. ASSESSMENT AND PLAN: A 47-year-old white female with the problems as below: 1. Shortness of breath, wheezing, history of bronchitis associated with yellow sputum. Possible bronchitis or chronic obstructive pulmonary disease exacerbation as she was having a history of significant tobacco abuse disorder. Other differential diagnosis includes congestive heart failure exacerbation because there was congestion in chest x-ray in the lung. D-dimer was negative. The patient has recent sinus infection. 2. History of asthma. 3. History of tobacco abuse disorder. 4. Dyslipidemia, hypothyroidism, gastroesophageal reflux disease, obstructive sleep apnea. Like I mentioned above, the major problem is COPD exacerbation with history of tobacco abuse disorder and shortness of breath. We will admit the patient to the hospital tele monitor. Solu-Medrol 60 q.8, DuoNeb. Continue azithromycin IV. We will give Rocephin IV. The patient has PENICILLIN ALLERGIES. There was 5% chance of cross reactions. Discussed with patient and about the risks and benefits and agreed to take the risk. At the same time, D-dimer was negative, has ruled out blood clot. We will check echocardiogram, check BNP. May be okay to give some Lasix, but we will hold for now. For history of gastroesophageal reflux disease, we will continue Protonix. For history of anxiety, we will continue paroxetine. GI and DVT prophylaxis is covered. The patient is full code. Discussed with the patient and , answered all the questions. MARLEY
[2017-06-12 17:15] VITALS: BP 141/93; PULSE 84; TEMP 36.8; O2SAT 93; Ht 149.9 cm; Wt 141.1 kg
[2017-06-12] MEDS: ALBUT/IPRATROP 3MG/0.5MG NEB 3 ML VIAL INH SCH ×2 (17:59→19:05)
[2017-06-12] MEDS ORDERED: NURSING VERBAL MED ORDER ONE ×2 (18:00→19:00)
[2017-06-12] MEDS: CEFTRIAXONE SOD INJ 1 GM in DEXTROSE 5% ADD-VANTAGE 50ML 50 ML IV SCH (18:30)
[2017-06-12 18:37] VITALS: BP 147/85; PULSE 88; TEMP 37.3; O2SAT 92
[2017-06-12 19:05] VITALS: PULSE 101; O2SAT 93
[2017-06-12] MEDS: AZITHROMYCIN IV 500 MG in DEXTROSE 5% 250ML 250 ML IV SCH (19:32)
[2017-06-12] MEDS: ACETAMINOPHEN 325 MG TAB PO PRN (20:09)
[2017-06-12] MEDS: AZELASTINE HCL 0.1 % NASAL SPRAY SCH (21:26)
[2017-06-12] MEDS: MONTELUKAST SOD 10 MG TAB PO SCH (21:54)
[2017-06-12] MEDS: LEVOCETIRIZINE 5 MG TABLET PO SCH (21:55)
[2017-06-12] MEDS: ENOXAPARIN 40 MG/0.4 ML SYR SC SCH (21:57)
[2017-06-12] MEDS: METHYLPREDNISOLONE IV 60 MG in SYRINGE 0 ML IV SCH (21:58)
[2017-06-12] MEDS: RANITIDINE HCL 150 MG TAB PO PRN (22:23)
[2017-06-12 23:57] VITALS: BP 138/81; PULSE 93; TEMP 36.6; O2SAT 92
[2017-06-13] VITALS (11 sets, daily range): BP systolic 140–174; BP diastolic 73–90; PULSE 79–105; TEMP 36.5–37; O2SAT 90–94
[2017-06-13] MEDS: ACETAMINOPHEN 325 MG TAB PO PRN ×2 (01:10→07:56)
[2017-06-13] MEDS ORDERED: SODIUM CHLORIDE 0.65% NA SOLN 45 ML (OCEAN) ONE (01:24)
[2017-06-13] MEDS ORDERED: SODIUM CHLORIDE 0.65% NA SOLN 45 ML (OCEAN) PRN (01:45)
[2017-06-13] MEDS: METHYLPREDNISOLONE IV 60 MG in SYRINGE 0 ML IV SCH ×2 (05:59→21:51)
[2017-06-13] MEDS: LORAZEPAM 0.5 MG TAB PO PRN ×3 (06:04→20:03)
[2017-06-13] MEDS: ALBUT/IPRATROP 3MG/0.5MG NEB 3 ML VIAL INH SCH ×4 (07:06→19:23)
[2017-06-13] MEDS: PAROXETINE 20 MG TAB PO SCH (07:56)
[2017-06-13] MEDS: AZELASTINE HCL 0.1 % NASAL SPRAY SCH ×2 (07:57→20:08)
--- NOTE | 2017-06-13 11:20 | Hospitalist Progress Note ---
Hospitalist Progress Note Date of Service June 13, 2017. (Greer Dior PA-C) Subjective Pt evaluation today including: conversation w/ patient, physical exam, chart review, lab review, review of studies Pain: None PO Intake: Good Voiding: no voiding problems The patient was seen and examined this morning. Pt reports doing slightly better this morning compared to yesterday. She notes her sx initially started last Friday, and attributes it to chronic sinusitis/bronchitis and feels her allergies are playing a large role in her symptoms. She admits to smoking about a half pack per day x 20 years on and off, and was able to smoke earlier this week as she was feeling better when using her nebulizer machine. She has also been using albuterol inhaler more often. She reports her also smokes, but they do not inside their home. Pt has quit multiple times in the past without aids. She is not agreeable to nicotine replacement or chantix and states "I'll be able to do this on my own if I want to". She notes multiple steroid tapers and adamantly says she cannot take oral steroid - ie prednisone. She becomes severely agitated, irritable, and notes the side effects are much worse than benefits. Constitutional: + fever (last week, nothing overnight), + sweats, No chills Eyes: No redness, No diplopia ENT: + nasal symptoms, No unusual epistaxis, No sore throat, No trouble swallowing Respiratory: + cough, + sputum, + wheezing, + dyspnea on exertion, No dyspnea at rest, No hemoptysis Cardiovascular: No chest pain, No palpitations Abdomen: No pain, No nausea, No vomiting, No diarrhea, No constipation Musculoskeletal: No joint pain, No swelling Neurologic: No weakness, No numbness/tingling Psychiatric: + anxiety Skin: No rash, No itch (Greer Dior, MU) Objective Vital Signs Date Time Temp Pulse Resp B/P (MAP) Pulse Ox O2 Delivery O2 Flow Rate FiO2 06/13/17 08:03 36.6 88 20 150/73 (98) 92 06/13/17 08:00 Nasal Cannula 2.0 06/13/17 07:06 90 18 93 Nasal Cannula 2.0 06/13/17 04:00 Nasal Cannula 2.0 06/13/17 02:59 36.5 90 16 149/79 (102) 93 06/13/17 00:00 Nasal Cannula 2.0 06/12/17 23:57 36.6 93 19 138/81 (100) 92 06/12/17 20:00 Nasal Cannula 2.0 06/12/17 19:05 101 16 93 Nasal Cannula 2.0 06/12/17 18:37 37.3 88 22 147/85 (105) 92 Nasal Cannula 3.0 06/12/17 17:15 36.8 84 22 141/93 93 Nasal Cannula 2.0 06/12/17 16:32 91 20 124/81 94 2.0 06/12/17 14:13 90 Room Air 06/12/17 13:36 79 19 94 Nasal Cannula 2.0 06/12/17 12:25 73 06/12/17 11:53 95 Nasal Cannula 2.0 06/12/17 11:50 89 Room Air 06/12/17 11:46 93 Room Air 06/12/17 11:46 36.9 77 28 133/77 93 Room Air 06/12/17 11:46 93 Room Air (Greer Dior PA-C) Physical Exam General Appearance: WD/WN, no apparent distress, + obese (morbidley, BMI 62.1) Eyes: normal inspection, PERRL, EOMI ENT: hearing grossly normal, pharynx normal, + pertinent finding (MMM) Neck: supple, no JVD Respiratory/Chest: chest non-tender, no respiratory distress, + pertinent finding (on 2 L via NC, + expiratory wheeze throughout, + cough with white colored sputum production. ) Cardiovascular: regular rate, rhythm, no JVD, no murmur, + tachycardia Abdomen: normal bowel sounds, non tender, soft Extremities: non-tender, no pedal edema, no calf tenderness Neurologic/Psychiatric: alert, normal mood/affect, oriented x 3 Skin: normal color, warm/dry (Greer Dior PA-C) Laboratory Results Last 24 Hours Test 06/12/17 12:16 06/12/17 12:44 06/12/17 12:50 06/12/17 14:10 Influenza Type A (RT-PCR) Neg for Influ A Influenza Type B (RT-PCR) Neg for Influ B White Blood Count 9.38 K/uL Red Blood Count 4.91 M/uL Hemoglobin 13.5 g/dL Hematocrit 40.8 % Mean Corpuscular Volume 83.1 fL Mean Corpuscular Hemoglobin 27.5 pg Mean Corpuscular Hemoglobin Concent 33.1 g/dl Platelet Count 258 K/uL Mean Platelet Volume 11.2 fL Neutrophils (%) (Auto) 47.2 % Lymphocytes (%) (Auto) 40.9 % Monocytes (%) (Auto) 8.4 % Eosinophils (%) (Auto) 2.7 % Basophils (%) (Auto) 0.4 % Neutrophils # (Auto) 4.42 K/uL Lymphocytes # (Auto) 3.84 K/uL Monocytes # (Auto) 0.79 K/uL Eosinophils # (Auto) 0.25 K/uL Basophils # (Auto) 0.04 K/uL RDW Standard Deviation 43.2 fL RDW Coefficient of Variation 14.2 % Immature Granulocyte % (Auto) 0.4 % Immature Granulocyte # (Auto) 0.04 K/uL Prothrombin Time 11.1 SECONDS Prothromb Time International Ratio 1.1 Activated Partial Thromboplast Time 25.0 SECONDS Partial Thromboplastin Ratio 1.0 Sodium Level 138 mmol/L Potassium Level 3.8 mmol/L Chloride Level 106 mmol/L Carbon Dioxide Level 27 mmol/L Anion Gap 5.0 mmol/L Blood Urea Nitrogen 11 mg/dl Creatinine 0.86 mg/dl Est Creatinine Clear Calc Drug Dose 107.6 ml/min Estimated GFR () 94.6 Estimated GFR (Non- 81.6 BUN/Creatinine Ratio 12.4 Random Glucose 122 mg/dl Calcium Level 8.9 mg/dl Total Bilirubin 0.7 mg/dl Aspartate Amino Transf (AST/SGOT) 18 U/L Alanine Aminotransferase (ALT/SGPT) 33 U/L Alkaline Phosphatase 77 U/L Troponin I < 0.015 ng/ml C-Reactive Protein 2.34 mg/dl Total Protein 7.4 gm/dl Albumin 3.6 gm/dl Globulin 3.8 gm/dl Albumin/Globulin Ratio 0.9 Human Chorionic Gonadotropin, Qual NEG Bedside D-Dimer 306 ng/mlFEU Urine Color YELLOW Urine Appearance CLEAR Urine pH 6.0 Urine Specific [place] 1.026 Urine Protein NEG Urine Glucose (UA) NEG Urine Ketones NEG Urine Occult Blood NEG Urine Nitrite NEG Urine Bilirubin NEG Urine Urobilinogen NEG Urine Leukocyte Esterase NEG (Greer Dior, JOSEC) Assessment and Plan 47 yo F with Pneumonia/ possible COPD exacerbation Hx chronic sinusitis, bronchitis Chronic tobacco use Asthma - Continue on iv solumedrol 60 mg Q12 h for now and taper down - pt notes inability to tolerate prednisone tabs. - Continue mucinex, duonebs, o2 protocol, supportive care. Pt wears 2L o2 HS at baseline. Currently sats in mid 90s at rest on 2L. - Azithromycin/ceftriaxone (started 06/12) - continue - Sputum culture - Ddimer neg. Pt is postmenopausal, not on control, no hx estrogen/ progesterone related carcinomas. Hypertension Diastolic CHF - BP elevated at 150s systolically, likely will improve with resolving of infection as above. - Outpt ECHO completed Mar 2017 completed showing normal EF, no WMA, type 2 diastolic dysfunction, no significant valvular abn. - Volume status difficult to assess due to body habitus. - Check 2 step O2 Dyslipidemia - Cont statin hypothyroidism - Cont levothyroxine. gastroesophageal reflux disease - omeprazole while inpatient obstructive sleep apnea - Not on cpap, wears 2 L O2 HS at baseline. FREDI - paroxetine CODE: full Disposition: From home, lives with , PT/OT evals, likely needs another 1- 2 days in hospital. (Greer Dior, JOSEC) Attending Attestation - Pt seen/examined, chart reviewed, care plan d/w TONNY Dior. I agree w/ the louis components of her documentation. Pt very tearful during the visit. Mentions numerous problems/complaints - sinus issues, breathing issues, tendonitis, reflux, musculoskeletal complaints. Adamantly refuses lasix - concerned of theoretical cross-reaction. Pt is up about 8 pounds of weight from baseline. VSS no fever o2 sats low 90s gen - nad, tearful, obese mouth - no thrush neck - no obvious JVD heart - tachy lungs - diffuse wheezes b/l, rales bases abd - soft, obese ext - no edema A/P: 1. asthma w/ exacerbation 2. ?acute diastolic CHF 3. acute/chronic sinusitis? 4. acute hypoxic resp failure 2nd to #1 agree w/ steroids and antibiotics she may require CT sinuses and chest if she fails to improve due to concern of cross-reaction with sulfa allergy pt will not take lasix may need to use ethacrynic acid in yusef; defer until tomorrow Armin COHEN MD (Bakari Cohen MD)
[2017-06-13] MEDS ORDERED: ACETAMINOPHEN 500 MG TAB PO ONE (16:30)
[2017-06-13] MEDS ORDERED: FUROSEMIDE INJ 40 MG in SYRINGE 0 ML IV ONE (16:30)
[2017-06-13] MEDS ORDERED: FUROSEMIDE INJ 20 MG in SYRINGE 0 ML IV ONE (16:45)
[2017-06-13] MEDS: LEVOCETIRIZINE 5 MG TABLET PO SCH (17:38)
[2017-06-13] MEDS: CEFTRIAXONE SOD INJ 1 GM in DEXTROSE 5% ADD-VANTAGE 50ML 50 ML IV SCH (17:42)
[2017-06-13] MEDS: AZITHROMYCIN IV 500 MG in DEXTROSE 5% 250ML 250 ML IV SCH (18:25)
[2017-06-13] MEDS: ENOXAPARIN 40 MG/0.4 ML SYR SC SCH (20:04)
[2017-06-13] MEDS: GUAIFENESIN 600 MG TABCR PO SCH (20:07)
[2017-06-13] MEDS: MONTELUKAST SOD 10 MG TAB PO SCH (20:07)
[2017-06-14] VITALS (11 sets, daily range): BP systolic 131–162; BP diastolic 73–84; PULSE 72–94; TEMP 36.4–37.1; O2SAT 94–96
[2017-06-14 07:08] LABS: CREATININE 0.71 mg/dl (0.60-1.20); POTASSIUM 4.5 mmol/L (3.5-5.1)
[2017-06-14] MEDS: ALBUT/IPRATROP 3MG/0.5MG NEB 3 ML VIAL INH SCH ×4 (07:17→19:33)
[2017-06-14] MEDS: GUAIFENESIN 600 MG TABCR PO SCH ×2 (08:55→19:58)
[2017-06-14] MEDS: PAROXETINE 20 MG TAB PO SCH (08:56)
[2017-06-14] MEDS: METHYLPREDNISOLONE IV 60 MG in SYRINGE 0 ML IV SCH ×2 (08:57→19:59)
[2017-06-14] MEDS: AZELASTINE HCL 0.1 % NASAL SPRAY SCH ×2 (08:57→19:59)
[2017-06-14] MEDS: LEVOCETIRIZINE 5 MG TABLET PO SCH ×2 (08:59→23:22)
[2017-06-14] MEDS: LORAZEPAM 0.5 MG TAB PO PRN ×3 (11:48→21:52)
--- NOTE | 2017-06-14 13:17 | DIAGNOSTIC IMAGING REPORT ---
SINUSES-MAXILLOFACIAL W/O CLINICAL HISTORY: 47 years-old Female presenting with chronic sinusitis, with acute sinusitis. TECHNIQUE: Multidetector CT of the sinuses was performed without the use of intravenous contrast. IV contrast: None. A dose lowering technique was used consistent with the principles of ALARA (as low as reasonably achievable). COMPARISON: None. CT DOSE (mGy.cm): The estimated cumulative dose is 535.19 mGy.cm. FINDINGS: Research Programmer topogram: Unremarkable. Paranasal sinuses clear apart from minimal mucosal thickening in the left posterior ethmoid air cells. Minimal mucosal thickening of the right maxillary sinus. Trace fluid in right mastoid air cells. Middle ears clear bilaterally. No osseous erosion or sclerosis. Bony nasal septum is minimally deviated to the right anteriorly. No bony spurring or bridging. Postsurgical changes of uncinectomies and ethmoidectomies. No bony dehiscence of the optic canals or carotid siphons. Nasofrontal ethmoidal recesses patent. No significant anatomic variant. Superficial soft tissues of the face within normal limits. Orbits normal. Limited intracranial evaluation within normal limits. Upper airway patent. IMPRESSION: 1. No current evidence of acute or chronic sinusitis. 2. Postsurgical changes of uncinectomies and ethmoidectomies. 3. Minimal scattered mucosal thickening. 4. No significant anatomic variant. Electronically signed by: Getachew Everett M.D. 06/14/2017 1:16 PM Dictated Date/Time: 06/14/2017 1:11 PM
--- NOTE | 2017-06-14 13:18 | DIAGNOSTIC IMAGING REPORT ---
CHEST 2 VIEWS ROUTINE CLINICAL HISTORY: 47 years-old Female presenting with ?CHF. TECHNIQUE: PA and lateral views of the chest were obtained. COMPARISON: 06/12/2017. FINDINGS: Cardiomediastinal silhouette is now normal. Decreased prominence of pulmonary vasculature. Lungs and pleural spaces clear. Degenerative changes of the thoracic spine. Upper abdomen normal. IMPRESSION: 1. Interval decrease in apparent cardiac silhouette enlargement and pulmonary vasculature. Findings consistent with resolving congestive change/volume overload. Electronically signed by: Getachew Everett M.D. 06/14/2017 1:17 PM Dictated Date/Time: 06/14/2017 1:16 PM
[2017-06-14] MEDS ORDERED: NURSING VERBAL MED ORDER ONE (16:30)
[2017-06-14] MEDS: CEFTRIAXONE SOD INJ 1 GM in DEXTROSE 5% ADD-VANTAGE 50ML 50 ML IV SCH (17:07)
[2017-06-14] MEDS: AZITHROMYCIN IV 500 MG in DEXTROSE 5% 250ML 250 ML IV SCH (18:05)
[2017-06-14] MEDS: ENOXAPARIN 40 MG/0.4 ML SYR SC SCH (19:57)
[2017-06-14] MEDS: MONTELUKAST SOD 10 MG TAB PO SCH (19:58)
[2017-06-14] MEDS: RANITIDINE HCL 150 MG TAB PO PRN (20:03)
[2017-06-15] VITALS (12 sets, daily range): BP systolic 127–154; BP diastolic 69–85; PULSE 67–91; TEMP 36.5–36.9; O2SAT 93–97
--- NOTE | 2017-06-15 00:20 | Progress Note ---
Subjective Date of Service: late entry for visit June 14, 2017. Subjective Pt evaluation today including: conversation w/ patient, physical exam, chart review, lab review, review of studies (CT sinuses, cxr), review of inpatient medication list Pain: none reported PO Intake: normal Voiding: no voiding problems tele normal overnight she overall feels better; can take deeper breaths, not as short of breath still with cough, intermittently productive still with orthopnea Problem List Medical Problems: (1) Bronchitis Status: Acute (2) Bronchitis Status: Acute (3) Hypoxia Status: Acute (4) Hypoxia Status: Acute (5) Right foot pain Status: Acute (6) Shortness of breath Status: Acute (7) SOB (shortness of breath) Status: Acute (8) Toe pain Status: Acute Review of Systems Constitutional: No fever, No chills Cardiac: + orthopnea, No chest pain, No edema Abdomen: No pain Objective Vital Signs Date Time Temp Pulse Resp B/P (MAP) Pulse Ox O2 Delivery O2 Flow Rate FiO2 06/14/17 20:00 Nasal Cannula 2.0 06/14/17 19:32 37.0 80 22 158/84 (108) 95 Nasal Cannula 2.0 06/14/17 16:00 Nasal Cannula 2.0 06/14/17 15:34 36.8 75 20 149/73 (98) 95 Nasal Cannula 2.0 06/14/17 15:29 79 18 94 Nasal Cannula 2.0 06/14/17 12:00 Nasal Cannula 2.0 06/14/17 11:28 37.1 82 19 162/84 (110) 95 Nasal Cannula 2.0 06/14/17 11:13 74 20 96 Nasal Cannula 2.0 06/14/17 08:00 Nasal Cannula 2.0 06/14/17 07:21 94 20 96 Nasal Cannula 2.0 06/14/17 06:38 36.6 86 20 139/80 (99) 96 Room Air 06/14/17 04:00 95 Nasal Cannula 2.0 06/14/17 03:48 36.5 79 19 131/75 (93) 95 Nasal Cannula 2.0 Physical Exam General Appearance: no apparent distress, + obese ENT: pharynx normal Neck: no JVD Respiratory/Chest: no respiratory distress, no accessory muscle use, + crackles (faint - bases), + wheezing (extensive - maybe slightly better today) Cardiovascular: regular rate, rhythm, no gallop, no murmur Abdomen: normal bowel sounds, non tender, soft, no organomegaly Extremities: no pedal edema Neurologic/Psychiatric: alert, oriented x 3 Laboratory Results Last 24 Hours Test 06/14/17 05:59 Sodium Level 137 mmol/L Potassium Level 4.5 mmol/L Chloride Level 105 mmol/L Carbon Dioxide Level 27 mmol/L Anion Gap 5.0 mmol/L Blood Urea Nitrogen 12 mg/dl Creatinine 0.71 mg/dl Est Creatinine Clear Calc Drug Dose 129.4 ml/min Estimated GFR () 119.2 Estimated GFR (Non- 102.9 BUN/Creatinine Ratio 16.1 Random Glucose 193 mg/dl Calcium Level 9.0 mg/dl Magnesium Level 2.4 mg/dl Assessment and Plan 47yo female - 1. asthma (or COPD) w/ exacerbation - improved. Leave steroids as is. Cont nebs, mucinex, incentive spirometry, O2, etc. CXR today with "improved" interstitial markings. Repeat cxr in am 2. ?acute diastolic CHF - her cxr today is improved even though she did not receive any diuretic. Will repeat cxr in am. If no change clinically tomorrow will give ethacrynic acid x 1 by mouth. 3. acute/chronic sinusitis - ruled out; CT sinuses completely normal. 4. acute hypoxic resp failure 2nd to #1 - improved. 5. ?community-acquired pneumonia - cxr w/o definitive pneumonia. Currently on rocephin/zithromax. Consider narrowing tomorrow am. 6. DVT proph - lovenox daily. 7. headache - resolved. 8. morbid obesity with BMI 62 9. hyperglycemia on am labs today - check a1c am. 10. allergies - continue home meds. 11. artur's danlos - noted Continued [facility] stay due to: multiple IV medications needed Discharge planning: home
[2017-06-15] MEDS: ALBUT/IPRATROP 3MG/0.5MG NEB 3 ML VIAL INH SCH ×4 (07:21→18:56)
[2017-06-15] MEDS: METHYLPREDNISOLONE IV 60 MG in SYRINGE 0 ML IV SCH ×2 (07:56→20:40)
[2017-06-15] MEDS: GUAIFENESIN 600 MG TABCR PO SCH ×2 (07:57→20:41)
[2017-06-15] MEDS: PAROXETINE 20 MG TAB PO SCH (07:57)
[2017-06-15] MEDS: AZELASTINE HCL 0.1 % NASAL SPRAY SCH ×2 (07:58→20:42)
[2017-06-15] MEDS: LORAZEPAM 0.5 MG TAB PO PRN ×3 (08:07→16:45)
[2017-06-15] MEDS ORDERED: NURSING VERBAL MED ORDER ONE (08:30)
--- NOTE | 2017-06-15 10:43 | DIAGNOSTIC IMAGING REPORT ---
CHEST 2 VIEWS ROUTINE HISTORY: 47 years-old Female ?CHF vs pneumonia acute cough COMPARISON: Chest radiograph 06/14/2017 TECHNIQUE: PA and lateral views of the chest FINDINGS: Cardiac silhouette is mildly enlarged. Mild pulmonary vascular congestion with interstitial coarsening is redemonstrated without pneumothorax. There are trace bilateral pleural effusions. No lobar airspace consolidation. Degenerative changes of the shoulders and spine. IMPRESSION: 1. Cardiomegaly with unchanged mild pulmonary edema. 2. Trace bilateral pleural effusions. The above report was generated using voice recognition software. It may contain grammatical, syntax or spelling errors. Electronically signed by: Getachew Rae M.D. 06/15/2017 10:42 AM Dictated Date/Time: 06/15/2017 10:38 AM
[2017-06-15] MEDS: LEVOCETIRIZINE 5 MG TABLET PO SCH ×2 (10:54→20:42)
[2017-06-15] MEDS ORDERED: ETHACRYNIC ACID 25 MG TAB PO ONE (11:15)
[2017-06-15] MEDS: ALBUT/IPRATROP 3MG/0.5MG NEB 3 ML VIAL INH PRN ×2 (17:29→21:03)
[2017-06-15] MEDS: CEFTRIAXONE SOD INJ 1 GM in DEXTROSE 5% ADD-VANTAGE 50ML 50 ML IV SCH (18:54)
[2017-06-15] MEDS: AZITHROMYCIN IV 500 MG in DEXTROSE 5% 250ML 250 ML IV SCH (19:33)
[2017-06-15] MEDS: MONTELUKAST SOD 10 MG TAB PO SCH (20:41)
[2017-06-15] MEDS: ENOXAPARIN 40 MG/0.4 ML SYR SC SCH (20:45)
[2017-06-15] MEDS: RANITIDINE HCL 150 MG TAB PO PRN (20:47)
[2017-06-16] VITALS (9 sets, daily range): BP systolic 131–163; BP diastolic 74–90; PULSE 69–82; TEMP 36.6–37.1; O2SAT 92–96
--- NOTE | 2017-06-16 00:06 | Progress Note ---
Subjective Date of Service: June 15, 2017. Subjective Pt evaluation today including: conversation w/ patient, conversation w/ family ( at bedside), physical exam, chart review, lab review, review of studies (cxr), review of inpatient medication list Pain: none reported PO Intake: 100% of meals consumed Voiding: incontinence (mild) tele stable overnight states she had a lot of chest congestion this am and feels slightly worse than yesterday cough intermittently productive but mainly dry orthopnea persists no LE edema no fever Problem List Medical Problems: (1) Bronchitis Status: Acute (2) Bronchitis Status: Acute (3) Hypoxia Status: Acute (4) Hypoxia Status: Acute (5) Right foot pain Status: Acute (6) Shortness of breath Status: Acute (7) SOB (shortness of breath) Status: Acute (8) Toe pain Status: Acute Review of Systems Constitutional: No fever, No chills Respiratory: + cough, + wheezing, + shortness of breath, + dyspnea on exertion Cardiac: + orthopnea, No chest pain, No PND, No edema Abdomen: No pain, No diarrhea Objective Vital Signs Date Time Temp Pulse Resp B/P (MAP) Pulse Ox O2 Delivery O2 Flow Rate FiO2 06/15/17 23:33 36.7 67 20 135/80 (98) 96 Nasal Cannula 2.0 06/15/17 21:03 85 16 94 Nasal Cannula 2.0 06/15/17 20:00 93 Nasal Cannula 2.0 06/15/17 19:19 36.9 84 20 127/69 (88) 93 Nasal Cannula 2.0 Humidified Oxygen 06/15/17 17:29 88 18 95 Nasal Cannula 2.0 06/15/17 15:30 Nasal Cannula 2.0 06/15/17 15:19 36.7 78 20 152/80 (104) 96 Nasal Cannula 2.0 Humidified Oxygen 06/15/17 12:00 Nasal Cannula 2.0 Humidified Oxygen 06/15/17 11:59 36.8 91 20 154/81 (105) 94 Nasal Cannula 2.0 06/15/17 11:11 83 18 95 Nasal Cannula 2.0 06/15/17 08:00 Nasal Cannula 2.0 Humidified Oxygen 06/15/17 07:42 74 18 97 Nasal Cannula 2.0 06/15/17 07:07 36.6 88 20 137/85 (102) 94 Nasal Cannula 2.0 06/15/17 04:00 Nasal Cannula 06/15/17 03:35 36.5 75 20 127/69 (88) 96 Nasal Cannula 2.0 06/15/17 00:00 95 Nasal Cannula Physical Exam General Appearance: no apparent distress, + obese ENT: pharynx normal Neck: + pertinent finding (due to neck size unable to assess for JVD) Respiratory/Chest: no respiratory distress, no accessory muscle use, + crackles (mild, both bases), + wheezing (extensive b/l) Cardiovascular: regular rate, rhythm, no gallop, no murmur Abdomen: normal bowel sounds, non tender, soft, no organomegaly Extremities: no pedal edema Neurologic/Psychiatric: alert, oriented x 3 Laboratory Results Last 24 Hours Test 06/15/17 11:12 Bedside Glucose 167 mg/dl Assessment and Plan 47yo female - 1. asthma (or COPD) w/ exacerbation - no significant improvement overnight and thus leave steroids as is (solumedrol 60mg q12h). Cont nebs, mucinex, incentive spirometry, O2, etc. CXR today with ongoing suspected pulmonary edema. See below. 2. ?acute/chronic diastolic CHF - her cxr today again shows suspected pulmonary edema. She had an outpatient echo in 03/2017 showing grade 2 diastolic dysfunction with preserved EF. She gained about 7-8 pounds of weight just prior to admission. Will give ethacrynic acid 20mg po x 1 and reassess clinically in the AM. (she refuses lasix and other loop diuretics due to her sulfa allergy and theoretical risk of cross-reactivity; I have counseled her that the risk is likely <1%). Daily weight and bmp/mag in am. 3. acute or chronic sinusitis - ruled out; CT sinuses completely normal. 4. acute hypoxic resp failure 2nd to #1 - stable. 5. ?community-acquired pneumonia - cxr w/o definitive lobar pneumonia although the interstitial infiltrates could represent an atypical pneumonia process. Currently on rocephin/zithromax, day #4 of each. d/c the IV abx. Give 1 more day of PO zithromax and 3 more days of omnicef 300mg BID as she is tolerating both classes of drugs. If the interstitial infiltrates persist despite Rx for infectious process and following diuresis then consider chest CT to rule out interstitial lung disease and other atypical processes. 6. DVT proph - lovenox daily. 7. headache - resolved. 8. morbid obesity with BMI 62 9. hyperglycemia on am labs today - check a1c am. Pre-lunch FSBS was just mildly high. 10. allergies - continue home meds. 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 updated at bedside today Continued [facility] stay due to: multiple IV medications needed Discharge planning: home
[2017-06-16 06:35] LABS: HEMATOCRIT 40.2 % (37-47); HEMOGLOBIN 13.5 g/dL (12.0-16.0); MEAN CELL VOLUME 82.7 fL (80-100); MEAN CORPUSCULAR HEMOGLOBIN 27.8 pg (25-34); MEAN CORPUSCULAR HGB CONC 33.6 g/dl (32-36); MEAN PLATELET VOLUME 10.5 fL (7.4-10.4); PLATELET COUNT 267 K/uL (130-400); RED CELL DISTRIBUTION WIDTH SD 42.4 fL (36.4-46.3); WHITE BLOOD COUNT 13.92 K/uL (4.8-10.8)
[2017-06-16] MEDS: ALBUT/IPRATROP 3MG/0.5MG NEB 3 ML VIAL INH SCH ×2 (06:56→11:15)
[2017-06-16 07:05] LABS: CALCIUM 9.1 mg/dl (8.5-10.1); CREATININE 0.75 mg/dl (0.60-1.20); POTASSIUM 4.5 mmol/L (3.5-5.1)
[2017-06-16 08:06] LABS: HEMOGLOBIN A1C 6.2 % (4.5-5.6)
[2017-06-16] MEDS: AZELASTINE HCL 0.1 % NASAL SPRAY SCH ×2 (08:33→21:12)
[2017-06-16] MEDS: METHYLPREDNISOLONE IV 60 MG in SYRINGE 0 ML IV SCH (08:33)
[2017-06-16] MEDS: CEFDINIR 300 MG CAP PO SCH ×2 (08:33→21:15)
[2017-06-16] MEDS: LEVOCETIRIZINE 5 MG TABLET PO SCH ×2 (08:34→21:16)
[2017-06-16] MEDS: PAROXETINE 20 MG TAB PO SCH (08:34)
[2017-06-16] MEDS: GUAIFENESIN 600 MG TABCR PO SCH ×2 (08:34→21:15)
[2017-06-16] MEDS ORDERED: AZITHROMYCIN 250 MG TAB PO SCH (09:00)
[2017-06-16] MEDS ORDERED: LEVALBUTEROL 1.25MG/0.5ML NEB INH SCH (15:00)
[2017-06-16] MEDS ORDERED: ETHACRYNIC ACID 25 MG TAB PO STA (17:38)
[2017-06-16] MEDS ORDERED: LEVALBUTEROL 1.25MG/3ML NEB INH PRN (17:45)
--- NOTE | 2017-06-16 17:55 | Hospitalist Progress Note ---
Hospitalist Progress Note Date of Service June 16, 2017. Subjective Pt evaluation today including: conversation w/ patient Pt feels that the neb treatments are worsening her anxiety and making her jittery. Complains that ativan made her feel terrible, and she cannot take po steroids-upsets her stomach, has to be IV only. She cannot take IM steroids due to her EDS. Tele with NSR, Feels less SOB, is able to speak in fluent sentences and has some mild SOB with that but wonders if it is from her anxiety. All Other Systems: Reviewed and Negative Objective Vital Signs Date Time Temp Pulse Resp B/P (MAP) Pulse Ox O2 Delivery O2 Flow Rate FiO2 06/16/17 15:38 37.1 72 18 159/74 (102) 94 Nasal Cannula 2.0 06/16/17 12:00 Room Air 06/16/17 11:15 36.8 76 22 163/90 (114) 96 Nasal Cannula 2.0 06/16/17 11:15 82 16 96 Nasal Cannula 2.0 06/16/17 08:00 Room Air 06/16/17 07:25 36.6 76 20 133/80 (97) 93 Room Air 06/16/17 04:00 92 Nasal Cannula 2.0 06/16/17 03:38 36.6 69 20 131/81 (98) 95 Nasal Cannula 4.2 06/16/17 00:00 96 Nasal Cannula 2.0 06/15/17 23:33 36.7 67 20 135/80 (98) 96 Nasal Cannula 2.0 06/15/17 21:03 85 16 94 Nasal Cannula 2.0 06/15/17 20:00 93 Nasal Cannula 2.0 06/15/17 19:19 36.9 84 20 127/69 (88) 93 Nasal Cannula 2.0 Humidified Oxygen Physical Exam General Appearance: WD/WN, no apparent distress, + obese (morbidly) Eyes: normal inspection, sclerae normal ENT: hearing grossly normal Neck: trachea midline Respiratory/Chest: lungs clear, normal breath sounds, no respiratory distress, no accessory muscle use Cardiovascular: regular rate, rhythm, no edema, no murmur Abdomen: normal bowel sounds Extremities: normal inspection, no pedal edema, no calf tenderness Neurologic/Psychiatric: alert, normal mood/affect, oriented x 3 Skin: normal color, warm/dry, no rash Laboratory Results Last 24 Hours Test 06/16/17 06:21 White Blood Count 13.92 K/uL Red Blood Count 4.86 M/uL Hemoglobin 13.5 g/dL Hematocrit 40.2 % Mean Corpuscular Volume 82.7 fL Mean Corpuscular Hemoglobin 27.8 pg Mean Corpuscular Hemoglobin Concent 33.6 g/dl RDW Standard Deviation 42.4 fL RDW Coefficient of Variation 14.0 % Platelet Count 267 K/uL Mean Platelet Volume 10.5 fL Sodium Level 137 mmol/L Potassium Level 4.5 mmol/L Chloride Level 102 mmol/L Carbon Dioxide Level 28 mmol/L Anion Gap 7.0 mmol/L Blood Urea Nitrogen 14 mg/dl Creatinine 0.75 mg/dl Est Creatinine Clear Calc Drug Dose 122.9 ml/min Estimated GFR () 111.6 Estimated GFR (Non- 96.3 BUN/Creatinine Ratio 19.1 Random Glucose 160 mg/dl Estimated Average Glucose 131 mg/dl Hemoglobin A1c 6.2 % Calcium Level 9.1 mg/dl Magnesium Level 2.4 mg/dl Assessment and Plan 47yo female - 1. asthma (or COPD) w/ exacerbation - now with significant improvement, off O2 at rest, feels nebs making her anxious -decrease steroids to Solu Medrol 60mg IV qAM -make nebs prn only -continue mucinex, incentive spirometry -ambulate with POx off O2 to see if will need supplemental O2 at home-already has nocturnal O2 - CXR 06/15 with ongoing suspected pulmonary edema. See below. 2. Acute/chronic diastolic CHF - her cxr today persistently shows suspected pulmonary edema and small Bilat pleural effusions. She had an outpatient echo in 03/2017 showing grade 2 diastolic dysfunction with preserved EF. She gained about 7-8 pounds of weight just prior to admission. -received one dose ethacrynic acid 25mg po on 06/15 with good UOP, but weight went up-unclear if weight accurate or if I/Os clearly be recorded (she refuses lasix and other loop diuretics due to her sulfa allergy and theoretical risk of cross-reactivity; I have counseled her that the risk is likely <1%) -give another dose Ethacrynic acid 25mg po x 1 now -ok to transfer to medical floor -Daily weight and bmp/mag in am. 3. Sinus congestion-- suspected acute or chronic sinusitis - ruled out; CT sinuses completely normal. 4. acute hypoxic resp failure 2nd to #1 - improved 5. ?community-acquired pneumonia - cxr w/o definitive lobar pneumonia although the interstitial infiltrates could represent an atypical pneumonia process. Currently on rocephin/zithromax, day #5 of each. d/c'd the IV abx. -needs 2 more days of omnicef 300mg BID and now done with azithro If the interstitial infiltrates persist despite Rx for infectious process and following diuresis then consider chest CT to rule out interstitial lung disease and other atypical processes. 6. DVT proph - lovenox daily is ordered but she refuses as she does not think she is at risk for DVT as she is ambulating-discussed that she is at risk but she continues to refuse this. 7. headache - resolved. 8. morbid obesity with BMI 62 9. Prediabetes/hyperglycemia on am labs -HgbA1C 6.2% -would benefit from weight loss program -could start metformin but will defer to PCP as pt very hesitant to take any new meds 10. allergies - continue home meds. 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 Dispo-transfer to medical, may dc to home tomorrow if dijean-pierrees updated at bedside today
[2017-06-16] MEDS: ENOXAPARIN 40 MG/0.4 ML SYR SC SCH (21:00)
[2017-06-16] MEDS: MONTELUKAST SOD 10 MG TAB PO SCH (21:15)
[2017-06-16] MEDS: RANITIDINE HCL 150 MG TAB PO PRN (21:16)
[2017-06-17] VITALS: O2SAT 94
[2017-06-17 00:13] VITALS: BP 169/75; PULSE 87; TEMP 36.8; O2SAT 92
[2017-06-17 03:00] VITALS: BP 129/81; PULSE 72; O2SAT 97
[2017-06-17] MEDS: LORAZEPAM 0.5 MG TAB PO PRN (03:24)
[2017-06-17 06:16] LABS: HEMATOCRIT 41.2 % (37-47); HEMOGLOBIN 13.4 g/dL (12.0-16.0); MEAN CELL VOLUME 82.9 fL (80-100); MEAN CORPUSCULAR HGB CONC 32.5 g/dl (32-36); MEAN PLATELET VOLUME 10.7 fL (7.4-10.4); PLATELET COUNT 293 K/uL (130-400); RED CELL DISTRIBUTION WIDTH CV 14.1 % (11.5-14.5); RED CELL DISTRIBUTION WIDTH SD 42.6 fL (36.4-46.3); WHITE BLOOD COUNT 17.19 K/uL (4.8-10.8)
[2017-06-17 06:52] LABS: CALCIUM 9.1 mg/dl (8.5-10.1); CREATININE 0.76 mg/dl (0.60-1.20); POTASSIUM 4.3 mmol/L (3.5-5.1)
[2017-06-17 07:19] LABS: BASO % 0.1 %; BASO ABS # 0.01 K/uL (0-0.2); EOS % 0.2 %; EOS ABS # 0.03 K/uL (0-0.5); LYMPH % 34.7 %; LYMPH ABS # 5.97 K/uL (1.2-3.4); MONO % 7.2 %; MONO ABS # 1.24 K/uL (0.11-0.59); NEUT % 56.6 %; NEUT ABS # 9.74 K/uL (1.4-6.5)
[2017-06-17] MEDS: CEFDINIR 300 MG CAP PO SCH (07:40)
[2017-06-17] MEDS: AZELASTINE HCL 0.1 % NASAL SPRAY SCH ×2 (07:40→20:46)
[2017-06-17] MEDS: LEVOCETIRIZINE 5 MG TABLET PO SCH ×2 (07:41→20:48)
[2017-06-17] MEDS: GUAIFENESIN 600 MG TABCR PO SCH ×2 (07:41→20:46)
[2017-06-17] MEDS: PAROXETINE 20 MG TAB PO SCH (07:41)
[2017-06-17 07:53] VITALS: BP 169/65; PULSE 88; TEMP 36.7; O2SAT 94
--- NOTE | 2017-06-17 08:02 | DIAGNOSTIC IMAGING REPORT ---
CHEST 2 VIEWS ROUTINE HISTORY: 47 years-old Female f/u pleural effusions follow-up study in a patient with pleural effusions. History of COPD and asthma COMPARISON: Chest radiograph 06/15/2017 TECHNIQUE: PA and lateral views of the chest FINDINGS: Cardiac silhouette is again mildly enlarged. No pneumothorax. Mild pulmonary vascular congestion with decreased interstitial coarsening. Trace bilateral pleural effusions are unchanged with subsegmental bibasilar opacities. Bones of the chest appear grossly intact. Mild degenerative changes about the shoulders. IMPRESSION: 1. Unchanged trace bilateral pleural effusions with subsegmental bibasilar opacities favoring atelectasis. 2. Mild pulmonary vascular congestion with decreased pulmonary edema. The above report was generated using voice recognition software. It may contain grammatical, syntax or spelling errors. Electronically signed by: Getachew Rae M.D. 06/17/2017 8:01 AM Dictated Date/Time: 06/17/2017 7:58 AM
[2017-06-17] MEDS ORDERED: ETHACRYNIC ACID 25 MG TAB PO SCH (09:00)
[2017-06-17] MEDS ORDERED: METHYLPREDNISOLONE IV 60 MG in SYRINGE 0 ML IV SCH (09:00)
[2017-06-17] MEDS ORDERED: NURSING VERBAL MED ORDER STA (09:48)
[2017-06-17 15:09] VITALS: BP 141/75; PULSE 83; TEMP 36.6; O2SAT 97
--- NOTE | 2017-06-17 16:45 | Hospitalist Progress Note ---
Hospitalist Progress Note Date of Service June 17, 2017. Subjective Pt evaluation today including: conversation w/ patient Has felt her throat swelling since 0300 last night, couldn't sleep, felt her chest was tight, took Benadryl and says it didn't knock her out like it normally does. Says she gets this sensation in the throat quite frequently as she is sensitive to numerous medications. Thinks it could be from the antibiotic being oral now or else from the ethacrynic acid. She is urinating quite a bit and does feel less SOB. All Other Systems: Reviewed and Negative Objective Vital Signs Date Time Temp Pulse Resp B/P (MAP) Pulse Ox O2 Delivery O2 Flow Rate FiO2 06/17/17 15:09 36.6 83 22 141/75 (97) 97 Room Air 1.5 06/17/17 08:45 Room Air 06/17/17 07:53 36.7 88 16 169/65 (99) 94 Room Air 06/17/17 03:00 72 20 129/81 (97) 97 06/17/17 00:13 36.8 87 20 169/75 (106) 92 Room Air 06/17/17 00:00 94 Room Air 06/16/17 19:47 37.1 72 19 96 06/16/17 19:29 37.1 72 19 158/77 (104) 96 Room Air Physical Exam General Appearance: no apparent distress (and talking quickly and without any dyspnea), + obese Eyes: normal inspection, sclerae normal ENT: hearing grossly normal, pharynx normal (airway is completely patent, no edema of lips, tongue; no erythema in posterior OP) Neck: trachea midline Respiratory/Chest: lungs clear, normal breath sounds, no respiratory distress, no accessory muscle use Cardiovascular: regular rate, rhythm, no edema, no gallop, no murmur Abdomen: normal bowel sounds, non tender, soft Extremities: non-tender, normal inspection, no pedal edema, no calf tenderness Neurologic/Psychiatric: alert, normal mood/affect, oriented x 3 Skin: normal color, warm/dry, no rash Laboratory Results Last 24 Hours Test 06/17/17 06:04 White Blood Count 17.19 K/uL Red Blood Count 4.97 M/uL Hemoglobin 13.4 g/dL Hematocrit 41.2 % Mean Corpuscular Volume 82.9 fL Mean Corpuscular Hemoglobin 27.0 pg Mean Corpuscular Hemoglobin Concent 32.5 g/dl Platelet Count 293 K/uL Mean Platelet Volume 10.7 fL Neutrophils (%) (Auto) 56.6 % Lymphocytes (%) (Auto) 34.7 % Monocytes (%) (Auto) 7.2 % Eosinophils (%) (Auto) 0.2 % Basophils (%) (Auto) 0.1 % Neutrophils # (Auto) 9.74 K/uL Lymphocytes # (Auto) 5.97 K/uL Monocytes # (Auto) 1.24 K/uL Eosinophils # (Auto) 0.03 K/uL Basophils # (Auto) 0.01 K/uL RDW Standard Deviation 42.6 fL RDW Coefficient of Variation 14.1 % Immature Granulocyte % (Auto) 1.2 % Immature Granulocyte # (Auto) 0.20 K/uL Sodium Level 137 mmol/L Potassium Level 4.3 mmol/L Chloride Level 99 mmol/L Carbon Dioxide Level 31 mmol/L Anion Gap 7.0 mmol/L Blood Urea Nitrogen 18 mg/dl Creatinine 0.76 mg/dl Est Creatinine Clear Calc Drug Dose 121.3 ml/min Estimated GFR () 109.8 Estimated GFR (Non- 94.7 BUN/Creatinine Ratio 23.6 Random Glucose 101 mg/dl Calcium Level 9.1 mg/dl Magnesium Level 2.2 mg/dl Assessment and Plan 47yo female - 1. asthma (or COPD) w/ exacerbation - now with significant improvement, off O2 at rest, feels nebs making her anxious and were made prn -continue steroids Solu Medrol 60mg IV qAM x 1 more day then stop -nebs prn only -continue mucinex, incentive spirometry - CXR 06/15 with ongoing suspected pulmonary edema. CXR 06/17 improved pulm vasc congestion, still small effusions bilat 2. Acute/chronic diastolic CHF - her cxr is improved today with less pulm vasc congestion, remains with small Bilat pleural effusions. She had an outpatient echo in 03/2017 showing grade 2 diastolic dysfunction with preserved EF. She gained about 7-8 pounds of weight just prior to admission. Now diuresing quite a bit with daily ethacrynic acid, but now thinks it is causing "throat swelling" so will dc -start HCTZ 25mg po qAM in the AM (she refuses lasix and other loop diuretics due to her sulfa allergy and theoretical risk of cross-reactivity; I have counseled her that the risk is likely <1%) -Daily weight and bmp, I/Os 3. Sinus congestion-- suspected acute or chronic sinusitis - ruled out; CT sinuses completely normal. 4. acute hypoxic resp failure 2nd to #1 -resolved 5. Suspected community-acquired pneumonia/Bi;at pleural effusions - ruled out- cxr w/o definitive lobar pneumonia although the interstitial infiltrates could represent an atypical pneumonia process. Finished 5 day course azithro, Rocephin and then cefdinir x 6 days -dc cefdinir as could be causing her allergic reaction -benadryl prn throat swelling -follow CXR to resolution 6. DVT proph - lovenox daily is ordered but she refuses as she does not think she is at risk for DVT as she is ambulating-discussed that she is at risk but she continues to refuse this. -will dc order for Lovenox as she continues to decline it -ambulation 7. headache - resolved. 8. morbid obesity with BMI 62 9. Prediabetes/hyperglycemia on am labs -HgbA1C 6.2% -would benefit from weight loss program -could start metformin but will defer to PCP as pt very hesitant to take any new meds 10. allergies - continue home meds. 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 Dispo-keep one more day due to possible allergic reaction -likely dc to home tomorrow
[2017-06-17] MEDS: MONTELUKAST SOD 10 MG TAB PO SCH (20:47)
[2017-06-17] MEDS: RANITIDINE HCL 150 MG TAB PO PRN (20:50)
[2017-06-17 23:47] VITALS: BP 126/63; PULSE 70; TEMP 37; O2SAT 97
[2017-06-18 07:07] VITALS: BP 140/68; PULSE 73; TEMP 36.8; O2SAT 93
[2017-06-18] MEDS ORDERED: NURSING VERBAL MED ORDER ONE (07:30)
[2017-06-18 07:56] LABS: HEMOGLOBIN 14.4 g/dL (12.0-16.0); MEAN CELL VOLUME 82.2 fL (80-100); MEAN CORPUSCULAR HEMOGLOBIN 27.5 pg (25-34); MEAN CORPUSCULAR HGB CONC 33.5 g/dl (32-36); MEAN PLATELET VOLUME 10.6 fL (7.4-10.4); PLATELET COUNT 299 K/uL (130-400); RED CELL DISTRIBUTION WIDTH CV 13.9 % (11.5-14.5); WHITE BLOOD COUNT 17.44 K/uL (4.8-10.8)
[2017-06-18] MEDS: PAROXETINE 20 MG TAB PO SCH (08:18)
[2017-06-18] MEDS: AZELASTINE HCL 0.1 % NASAL SPRAY SCH ×2 (08:18→20:31)
[2017-06-18] MEDS: GUAIFENESIN 600 MG TABCR PO SCH (08:18)
[2017-06-18] MEDS: LEVOCETIRIZINE 5 MG TABLET PO SCH ×2 (08:19→20:31)
[2017-06-18 08:26] LABS: BASO % 0.1 %; BASO ABS # 0.02 K/uL (0-0.2); EOS % 0.6 %; EOS ABS # 0.11 K/uL (0-0.5); IG# 0.28 K/uL (0.00-0.02); LYMPH % 40.7 %; LYMPH ABS # 7.09 K/uL (1.2-3.4); MONO % 7.2 %; MONO ABS # 1.26 K/uL (0.11-0.59); NEUT % 49.8 %; NEUT ABS # 8.68 K/uL (1.4-6.5)
[2017-06-18 08:29] LABS: CALCIUM 8.9 mg/dl (8.5-10.1); CREATININE 0.82 mg/dl (0.60-1.20); POTASSIUM 3.8 mmol/L (3.5-5.1)
[2017-06-18] MEDS ORDERED: HYDROCHLOROTHIAZIDE 25 MG TAB PO SCH (09:00)
[2017-06-18] MEDS ORDERED: SPIRONOLACTONE 25 MG TAB PO SCH (09:00)
[2017-06-18] MEDS ORDERED: METHYLPREDNISOLONE 125 MG VIAL IV STA (10:34)
[2017-06-18] MEDS: LORAZEPAM 0.5 MG TAB PO PRN (10:37)
[2017-06-18] MEDS ORDERED: RANITIDINE HCL 150 MG TAB PO ONE (10:45)
--- NOTE | 2017-06-18 10:50 | Hospitalist Progress Note ---
Hospitalist Progress Note Date of Service June 18, 2017. Subjective Pt evaluation today including: conversation w/ patient Pt very anxious this AM, feels like her throat is closing up still and now starting to get itchy in her neck. She reports she slept with her mouth open the last few nights as her nose has been congested. Feels sore in the throat and has tried throat moisturizing spray, has humidified O2. Feels a little tight in the chest, wonders if her anxiety is causing these symptoms. Requesting an Ativan now, also took benadryl about an hour ago. Reports it has been going on since yesterday but a little worse since 0300. She lost her IV site this AM and has not received her daily steroids All Other Systems: Reviewed and Negative Objective Vital Signs Date Time Temp Pulse Resp B/P (MAP) Pulse Ox O2 Delivery O2 Flow Rate FiO2 06/18/17 07:07 36.8 73 16 140/68 (92) 93 Room Air 06/18/17 00:00 Nasal Cannula 2.0 06/17/17 23:47 37.0 70 18 126/63 (84) 97 2.0 06/17/17 16:00 Room Air 06/17/17 15:09 36.6 83 22 141/75 (97) 97 Room Air 1.5 Physical Exam General Appearance: WD/WN, no apparent distress (but appears anxious), + obese Eyes: normal inspection, EOMI, sclerae normal ENT: hearing grossly normal, pharynx normal (no erythema, no edema of tongue, lips, or uvula, Airway is widely patent) Neck: trachea midline Respiratory/Chest: no respiratory distress, no accessory muscle use, + wheezing (one faint exp wheeze heard on left mid lung field, otherwise clear and moving air well; no stridor) Cardiovascular: regular rate, rhythm, no edema, no murmur Abdomen: normal bowel sounds, non tender, soft Extremities: no pedal edema, no calf tenderness Neurologic/Psychiatric: alert, oriented x 3, + pertinent finding (anxious) Skin: normal color, warm/dry, no rash Laboratory Results Last 24 Hours Test 06/18/17 07:39 White Blood Count 17.44 K/uL Red Blood Count 5.23 M/uL Hemoglobin 14.4 g/dL Hematocrit 43.0 % Mean Corpuscular Volume 82.2 fL Mean Corpuscular Hemoglobin 27.5 pg Mean Corpuscular Hemoglobin Concent 33.5 g/dl Platelet Count 299 K/uL Mean Platelet Volume 10.6 fL Neutrophils (%) (Auto) 49.8 % Lymphocytes (%) (Auto) 40.7 % Monocytes (%) (Auto) 7.2 % Eosinophils (%) (Auto) 0.6 % Basophils (%) (Auto) 0.1 % Neutrophils # (Auto) 8.68 K/uL Lymphocytes # (Auto) 7.09 K/uL Monocytes # (Auto) 1.26 K/uL Eosinophils # (Auto) 0.11 K/uL Basophils # (Auto) 0.02 K/uL RDW Standard Deviation 42.0 fL RDW Coefficient of Variation 13.9 % Immature Granulocyte % (Auto) 1.6 % Immature Granulocyte # (Auto) 0.28 K/uL Sodium Level 135 mmol/L Potassium Level 3.8 mmol/L Chloride Level 98 mmol/L Carbon Dioxide Level 31 mmol/L Anion Gap 6.0 mmol/L Blood Urea Nitrogen 21 mg/dl Creatinine 0.82 mg/dl Est Creatinine Clear Calc Drug Dose 112.4 ml/min Estimated GFR () 100.2 Estimated GFR (Non- 86.4 BUN/Creatinine Ratio 25.5 Random Glucose 91 mg/dl Calcium Level 8.9 mg/dl Assessment and Plan Pt is a 47yo female here with: 1. Asthma (or COPD) w/ exacerbation - has improved, now dealing with possible allergic reaction, off O2 during daytime except currently wearing it for comfort , feels nebs making her anxious and were made prn. -restart IV and give IV Solu Medrol 125mg IV x 1 and then 60mg IV q8h for allergic reaction -nebs prn only -dc mucinex as she feels may be drying her throat out too much -continue incentive spirometry - CXR 06/15 with ongoing suspected pulmonary edema. CXR 06/17 improved pulm vasc congestion, still small effusions bilat 2. Acute/chronic diastolic CHF - her cxr is improved on 06/17 with less pulm vasc congestion, remains with small Bilat pleural effusions. She had an outpatient echo in 03/2017 showing grade 2 diastolic dysfunction with preserved EF. She gained about 7-8 pounds of weight just prior to admission. She diuresed quite a bit with several days of ethacrynic acid, but then caused possible allergic reaction, throat swelling so was stopped -gave a dose of spironolactone 12.5mg this AM but now will hold as unclear what she is reacting to (she refuses lasix and other loop diuretics, HCTZ, due to her sulfa allergy and theoretical risk of cross-reactivity) -Daily weight and bmp, I/Os 3. Sinus congestion-- suspected acute or chronic sinusitis - ruled out; CT sinuses completely normal. 4. acute hypoxic resp failure 2nd to #1 -resolved 5. Suspected community-acquired pneumonia/Bilat pleural effusions - ruled out- cxr w/o definitive lobar pneumonia although the interstitial infiltrates could represent an atypical pneumonia process. Finished 5 day course azithro, Rocephin and then cefdinir x 6 days -dcd cefdinir as could be causing her allergic reaction -follow CXR to resolution 6. DVT proph - lovenox daily is ordered but she refuses as she does not think she is at risk for DVT as she is ambulating-discussed that she is at risk but she continues to refuse this. - dcd order for Lovenox as she continues to decline it -ambulation 7. headache - resolved. 8. morbid obesity with BMI 62 9. Prediabetes/hyperglycemia on am labs -HgbA1C 6.2% -would benefit from weight loss program -could start metformin but will defer to PCP as pt very hesitant to take any new meds 10. allergies/Allergic reaction to unknown trigger - with sensation of throat swelling, difficulty swallowing, chest tightness. Airway widely patent at this time, vitals stable -restart IV SOlu Medrol now -continue Benadryl q4h prn -give an extra dose of Zantac 150mg po x 1 now -give ativan too to help in case of anxiety component -observe for worsening -consult ENT and/or Bark Grinder urgently if has impending airway obstruction -consider Epi IM/SQ 0.3mg if worsening 11. ehler's danlos - long-standing diagnosis that prevents her from getting SQ or IM injections. Dispo-remain in house now for allergic reaction
[2017-06-18] MEDS ORDERED: METHYLPREDNISOLONE 125 MG in SYRINGE 0 ML IV ONE (11:00)
[2017-06-18 16:02] VITALS: BP 138/75; PULSE 77; TEMP 37.2; O2SAT 92
[2017-06-18] MEDS: METHYLPREDNISOLONE IV 60 MG in SYRINGE 0 ML IV SCH (18:55)
[2017-06-18] MEDS: MONTELUKAST SOD 10 MG TAB PO SCH (20:31)
[2017-06-18] MEDS: RANITIDINE HCL 150 MG TAB PO SCH (20:31)
[2017-06-18 23:57] VITALS: BP 150/70; PULSE 67; TEMP 36.5; O2SAT 93
[2017-06-19] MEDS: METHYLPREDNISOLONE IV 60 MG in SYRINGE 0 ML IV SCH ×3 (03:05→22:16)
[2017-06-19 06:58] VITALS: BP 153/95; PULSE 83; TEMP 37; O2SAT 95
[2017-06-19 06:58] LABS: CREATININE 0.88 mg/dl (0.60-1.20); POTASSIUM 4.5 mmol/L (3.5-5.1)
[2017-06-19] MEDS: AZELASTINE HCL 0.1 % NASAL SPRAY SCH ×2 (07:34→19:57)
[2017-06-19] MEDS: PAROXETINE 20 MG TAB PO SCH (07:34)
[2017-06-19] MEDS: LEVOCETIRIZINE 5 MG TABLET PO SCH ×2 (07:36→19:58)
[2017-06-19] MEDS: RANITIDINE HCL 150 MG TAB PO SCH ×3 (07:37→20:38)
[2017-06-19] MEDS: ACETAMINOPHEN 325 MG TAB PO PRN (09:44)
[2017-06-19] MEDS: ACETAMINOPHEN 500 MG TAB PO PRN (12:25)
--- NOTE | 2017-06-19 14:37 | Hospitalist Progress Note ---
Hospitalist Progress Note Date of Service June 19, 2017. Subjective Pt evaluation today including: conversation w/ patient Patient reports her throat feels a little less swollen today. She is having a frontal headache and thinks that a lot of her throat swelling and recent issues are from the construction going on in the room next to hers where they removed a window and all the pollen from outside has come in. She has severe tree pollen allergies. She is requesting a room change. She has been back on IV steroids and is much feeling much better. No shortness of breath. We had a long discussion about her morbid obesity and she says she has lost 20 pounds purposefully in the last year. She is committed now to quitting smoking as well. All Other Systems: Reviewed and Negative Objective Vital Signs Date Time Temp Pulse Resp B/P (MAP) Pulse Ox O2 Delivery O2 Flow Rate FiO2 06/19/17 06:58 37.0 83 18 153/95 (114) 95 Room Air 06/19/17 00:00 Nasal Cannula 2.0 06/18/17 23:57 36.5 67 19 150/70 (96) 93 Nasal Cannula 2.0 06/18/17 16:02 37.2 77 18 138/75 (96) 92 Room Air 06/18/17 16:00 Room Air 2.0 Nasal Cannula Physical Exam General Appearance: WD/WN, no apparent distress, + obese Eyes: normal inspection, EOMI, sclerae normal ENT: hearing grossly normal, pharynx normal Neck: trachea midline Respiratory/Chest: lungs clear (Except for one faint wheeze), normal breath sounds, no respiratory distress, no accessory muscle use Cardiovascular: regular rate, rhythm, no edema, no murmur Abdomen: normal bowel sounds, non tender, soft Extremities: non-tender, normal inspection, no pedal edema, no calf tenderness Neurologic/Psychiatric: alert, normal mood/affect, oriented x 3 Skin: normal color, warm/dry, no rash Laboratory Results Last 24 Hours Test 06/19/17 06:07 Sodium Level 134 mmol/L Potassium Level 4.5 mmol/L Chloride Level 99 mmol/L Carbon Dioxide Level 27 mmol/L Anion Gap 8.0 mmol/L Blood Urea Nitrogen 15 mg/dl Creatinine 0.88 mg/dl Est Creatinine Clear Calc Drug Dose 104.4 ml/min Estimated GFR () 92.0 Estimated GFR (Non- 79.3 BUN/Creatinine Ratio 16.9 Random Glucose 179 mg/dl Calcium Level 9.0 mg/dl Assessment and Plan -Pt is a 47yo female here with: 1. Asthma (or COPD) w/ exacerbation -resolved, now dealing with possible allergic reaction which is also resolving, off O2 during daytime except currently wearing it for comfort, feels nebs making her anxious and were made prn. -Will wean down again on IV Solu Medrol to 60mg IV q12h which is now mostly for allergic reaction -nebs prn only -dc mucinex as she feels may be drying her throat out too much -continue incentive spirometry - CXR 06/15 with ongoing suspected pulmonary edema. CXR 06/17 improved pulm vasc congestion, still small effusions bilat -Follow chest x-ray in the morning 2. Acute/chronic diastolic CHF/bilateral pleural effusions- her cxr is improved on 06/17 with less pulm vasc congestion, remains with small Bilat pleural effusions. She had an outpatient echo in 03/2017 showing grade 2 diastolic dysfunction with preserved EF. She gained about 7-8 pounds of weight just prior to admission. She diuresed quite a bit with several days of ethacrynic acid, but then caused possible allergic reaction, throat swelling so was stopped -gave a dose of spironolactone 12.5mg but now will hold as unclear what she is reacting to (she refuses lasix and other loop diuretics, HCTZ, due to her sulfa allergy and theoretical risk of cross-reactivity) -Daily weight and bmp, I/Os -Follow chest x-ray 3. Sinus congestion/frontal headache-- suspected acute or chronic sinusitis - ruled out; CT sinuses completely normal. -Tylenol as needed 4. acute hypoxic resp failure 2nd to #1 -resolved 5. Suspected community-acquired pneumonia/Bilat pleural effusions - ruled out- cxr w/o definitive lobar pneumonia although the interstitial infiltrates could represent an atypical pneumonia process. Finished 5 day course azithro, Rocephin and then cefdinir x 6 days -dcd cefdinir as could be causing her allergic reaction -follow CXR to resolution after discharge 6. DVT proph - lovenox daily is ordered but she refuses as she does not think she is at risk for DVT as she is ambulating-discussed that she is at risk but she continues to refuse this. - dcd order for Lovenox as she continues to decline it -ambulation 7. headache -secondary to allergies, sinus congestion as above 8. morbid obesity with BMI 62 -Gave her the name of Dr. Aggie Dawson as an obesity medicine expert as the [facility] obesity medicine doctor has a one-year waiting period -Counseled extensively on the importance of weight loss and it may improve her allergies, as well as her respiratory issues and diastolic dysfunction 9. Prediabetes/hyperglycemia on am labs -HgbA1C 6.2% -would benefit from weight loss program -could start metformin but will defer to PCP as pt very hesitant to take any new meds 10. allergies/Allergic reaction to unknown trigger but could be from her environment in the construction next-door with exposure to tree pollen-with sensation of throat swelling, difficulty swallowing, chest tightness. Airway widely patent at this time, vitals stable. Improving today once restarting IV steroids -We will request room change -Decrease Solu-Medrol to 60 mg every 12 -continue Benadryl q4h prn -Continue Zantac daily -give ativan too to help in case of anxiety component as needed -observe for worsening -consult ENT and/or Regional Administrative Assistant urgently if has impending airway obstruction -consider Epi IM/SQ 0.3mg if worsening 11. ehler's danlos - long-standing diagnosis that prevents her from getting SQ or IM injections. Dispo-remain in house now for allergic reaction, possible discharged home tomorrow
[2017-06-19 15:33] VITALS: BP 173/91; PULSE 80; TEMP 36.8; O2SAT 96
[2017-06-19 16:09] VITALS: BP 156/86
[2017-06-19] MEDS: MONTELUKAST SOD 10 MG TAB PO SCH (19:57)
[2017-06-19] MEDS: LORAZEPAM 0.5 MG TAB PO PRN (22:28)
[2017-06-19 22:51] VITALS: BP 187/85; PULSE 75; TEMP 37.1; O2SAT 95
[2017-06-19 23:38] VITALS: BP 158/76
[2017-06-20 06:53] LABS: BASO % 0.1 %; BASO ABS # 0.02 K/uL (0-0.2); HEMATOCRIT 41.9 % (37-47); HEMOGLOBIN 13.7 g/dL (12.0-16.0); IG# 0.28 K/uL (0.00-0.02); LYMPH % 13.8 %; LYMPH ABS # 2.44 K/uL (1.2-3.4); MEAN CELL VOLUME 82.2 fL (80-100); MEAN CORPUSCULAR HEMOGLOBIN 26.9 pg (25-34); MEAN CORPUSCULAR HGB CONC 32.7 g/dl (32-36); MEAN PLATELET VOLUME 10.9 fL (7.4-10.4); MONO % 5.6 %; NEUT % 78.9 %; PLATELET COUNT 300 K/uL (130-400); RED CELL DISTRIBUTION WIDTH CV 13.9 % (11.5-14.5); RED CELL DISTRIBUTION WIDTH SD 42.2 fL (36.4-46.3); WHITE BLOOD COUNT 17.74 K/uL (4.8-10.8)
[2017-06-20 07:40] VITALS: BP 171/85; PULSE 86; TEMP 37; O2SAT 98
[2017-06-20] MEDS: RANITIDINE HCL 150 MG TAB PO SCH ×2 (07:44→21:28)
[2017-06-20] MEDS: PAROXETINE 20 MG TAB PO SCH (07:46)
[2017-06-20] MEDS: LORAZEPAM 0.5 MG TAB PO PRN (07:48)
[2017-06-20] MEDS: AZELASTINE HCL 0.1 % NASAL SPRAY SCH ×2 (07:48→21:29)
[2017-06-20] MEDS: LEVOCETIRIZINE 5 MG TABLET PO SCH ×2 (07:48→21:29)
[2017-06-20 08:09] LABS: CALCIUM 9.2 mg/dl (8.5-10.1); CREATININE 0.75 mg/dl (0.60-1.20); POTASSIUM 5.2 mmol/L (3.5-5.1)
--- NOTE | 2017-06-20 08:33 | DIAGNOSTIC IMAGING REPORT ---
CHEST 2 VIEWS ROUTINE CLINICAL HISTORY: Follow-up pleural effusions pleural effusion COMPARISON STUDY: 06/17/2017 FINDINGS: Findings of mild congestive failure persists. Slight blunting of the left lateral costophrenic angle is unchanged. Right calcified angle is now sharp. Degenerative changes thoracic spine persists. IMPRESSION: Mild congestive failure with a trace amount pleural fluid left base. Slight improvement radiographically compared to the prior exam. The above report was generated using voice recognition software. It may contain grammatical, syntax or spelling errors. Electronically signed by: Mario Lopez M.D. 06/20/2017 8:32 AM Dictated Date/Time: 06/20/2017 8:30 AM
[2017-06-20] MEDS: ACETAMINOPHEN 500 MG TAB PO PRN (10:16)
[2017-06-20] MEDS: METHYLPREDNISOLONE IV 60 MG in SYRINGE 0 ML IV SCH (11:32)
[2017-06-20 14:40] VITALS: BP 160/87; PULSE 83; TEMP 36.8; O2SAT 91
--- NOTE | 2017-06-20 18:11 | Hospitalist Progress Note ---
Hospitalist Progress Note Date of Service June 20, 2017. Subjective Pt evaluation today including: conversation w/ patient Patient reports she had a terrible night. She never got moved out of the room where she felt she was having and environmental allergic reaction to. She finally got moved to a new room this morning and ever since, reports most of her symptoms have significantly improved. She no longer has a headache or sinus congestion, no longer has throat pain. She still has some sensation of tongue swelling and tingling. She is eating all her meals and drinking hot tea when I saw her. Neurologic: + numbness/tingling (In her right great toe) All Other Systems: Reviewed and Negative Objective Vital Signs Date Time Temp Pulse Resp B/P (MAP) Pulse Ox O2 Delivery O2 Flow Rate FiO2 06/20/17 16:33 Nasal Cannula 2.0 06/20/17 14:40 36.8 83 18 160/87 (111) 91 Nasal Cannula 3.0 06/20/17 08:00 Nasal Cannula 2.0 Humidified Oxygen 06/20/17 07:40 37.0 86 20 171/85 (113) 98 2.0 06/19/17 23:40 Nasal Cannula 2.0 Humidified Oxygen 06/19/17 23:38 158/76 (103) 06/19/17 22:51 37.1 75 20 187/85 (119) 95 Room Air Physical Exam General Appearance: WD/WN, no apparent distress, + obese Eyes: normal inspection, sclerae normal ENT: hearing grossly normal, pharynx normal (No tongue or lip swelling, airway is widely patent, no erythema) Neck: trachea midline Respiratory/Chest: lungs clear, normal breath sounds, no respiratory distress, no accessory muscle use Cardiovascular: regular rate, rhythm, no edema, no murmur Abdomen: normal bowel sounds, non tender, soft Extremities: normal inspection, no pedal edema, no calf tenderness Neurologic/Psychiatric: alert, normal mood/affect, oriented x 3 Skin: normal color, warm/dry, no rash Laboratory Results Last 24 Hours Test 06/20/17 06:25 White Blood Count 17.74 K/uL Red Blood Count 5.10 M/uL Hemoglobin 13.7 g/dL Hematocrit 41.9 % Mean Corpuscular Volume 82.2 fL Mean Corpuscular Hemoglobin 26.9 pg Mean Corpuscular Hemoglobin Concent 32.7 g/dl Platelet Count 300 K/uL Mean Platelet Volume 10.9 fL Neutrophils (%) (Auto) 78.9 % Lymphocytes (%) (Auto) 13.8 % Monocytes (%) (Auto) 5.6 % Eosinophils (%) (Auto) 0.0 % Basophils (%) (Auto) 0.1 % Neutrophils # (Auto) 14.00 K/uL Lymphocytes # (Auto) 2.44 K/uL Monocytes # (Auto) 1.00 K/uL Eosinophils # (Auto) 0.00 K/uL Basophils # (Auto) 0.02 K/uL RDW Standard Deviation 42.2 fL RDW Coefficient of Variation 13.9 % Immature Granulocyte % (Auto) 1.6 % Immature Granulocyte # (Auto) 0.28 K/uL Sodium Level 137 mmol/L Potassium Level 5.2 mmol/L Chloride Level 101 mmol/L Carbon Dioxide Level 33 mmol/L Anion Gap 3.0 mmol/L Blood Urea Nitrogen 16 mg/dl Creatinine 0.75 mg/dl Est Creatinine Clear Calc Drug Dose 123.0 ml/min Estimated GFR () 111.6 Estimated GFR (Non- 96.3 BUN/Creatinine Ratio 21.2 Random Glucose 142 mg/dl Calcium Level 9.2 mg/dl Chemistry Specimen Hemolysis Assessment and Plan -Pt is a 47yo female here with: 1. Asthma (or COPD) w/ exacerbation -resolved, now dealing with possible allergic reaction which is also resolving, off O2 during daytime except currently wearing it for comfort, feels nebs making her anxious and were made prn. -Continue IV Solu Medrol 60mg IV q12h which is now mostly for allergic reaction , and will likely discontinue tomorrow-she cannot tolerate p.o. prednisone -nebs prn only -dcd mucinex as she feels may be drying her throat out too much -continue incentive spirometry - CXR 06/15 with ongoing suspected pulmonary edema. CXR 06/17 improved pulm vasc congestion, still small effusions bilat, CXR 06/20 much improved with only trace pleural effusion on the left and completely clear on the right as per my personal review -Follow chest x-ray to resolution as an outpatient 2. Acute/chronic diastolic CHF/bilateral pleural effusions- her cxr is improved on 06/17 with less pulm vasc congestion, remains with small Bilat pleural effusions. She had an outpatient echo in 03/2017 showing grade 2 diastolic dysfunction with preserved EF. She gained about 7-8 pounds of weight just prior to admission. She diuresed quite a bit with several days of ethacrynic acid despite her weight not changing, but then caused possible allergic reaction, throat swelling so was stopped -gave a dose of spironolactone 12.5mg and seemed to tolerate this, but now on hold as unclear what she is reacting to (she refuses lasix and other loop diuretics, HCTZ, due to her sulfa allergy and theoretical risk of cross-reactivity) -Daily weight and bmp, I/Os -Follow chest x-ray -Discussed the possibility of getting a prescription for spironolactone to take upon discharge on a as needed basis for peripheral edema or weight gain greater than 5 pounds in 1 day 3. Sinus congestion/frontal headache-- suspected acute or chronic sinusitis - ruled out; CT sinuses completely normal.-Completely resolved now that she has changed rooms -Tylenol as needed 4. acute hypoxic resp failure 2nd to #1 -resolved, took oxygen off while he was talking her today and was fine, will only wear at nighttime 5. Suspected community-acquired pneumonia/Bilat pleural effusions - ruled out- cxr w/o definitive lobar pneumonia although the interstitial infiltrates could represent an atypical pneumonia process. Finished 5 day course azithro, Rocephin and then cefdinir x 6 days -dcd cefdinir as could be causing her allergic reaction -follow CXR to resolution after discharge 6. DVT proph - lovenox daily is ordered but she refuses as she does not think she is at risk for DVT as she is ambulating-discussed that she is at risk but she continues to refuse this. - dcd order for Lovenox as she continues to decline it -ambulation 7. headache -secondary to allergies, sinus congestion as above-completely resolved 8. morbid obesity with BMI 62 -Gave her the name of Dr. Aggie Dawson as an obesity medicine expert as the [facility] obesity medicine doctor has a one-year waiting period -Counseled extensively on the importance of weight loss and it may improve her allergies, as well as her respiratory issues and diastolic dysfunction 9. Prediabetes/hyperglycemia on am labs -HgbA1C 6.2% -would benefit from weight loss program as above -could start metformin but will defer to PCP as pt very hesitant to take any new meds 10. allergies/Allergic reaction to unknown trigger but could be from her environment in the construction next-door with exposure to tree pollen-with sensation of throat swelling, difficulty swallowing, chest tightness. Airway widely patent at this time, vitals stable. Continues to be much improved today after being on IV steroids, but likely most improved with changing rooms as she was near an area of construction and the windows were open to the outside pollen -Continue Solu-Medrol to 60 mg every 12 and then likely stop tomorrow -continue Benadryl q4h prn -Continue Zantac daily -give ativan too to help in case of anxiety component as needed -observe for worsening -consult ENT and/or Hairspring Inspector urgently if has impending airway obstruction -consider Epi IM/SQ 0.3mg if worsening 11. ehler's danlos - long-standing diagnosis that prevents her from getting SQ or IM injections. Dispo-remain in house now for allergic reaction, likely discharge home tomorrow
[2017-06-20] MEDS: MONTELUKAST SOD 10 MG TAB PO SCH (21:27)
[2017-06-21] VITALS: BP 138/71; PULSE 73; TEMP 36.6; O2SAT 97
[2017-06-21 07:27] VITALS: BP 187/82; PULSE 90; TEMP 36.8; O2SAT 94
[2017-06-21] MEDS: PAROXETINE 20 MG TAB PO SCH (07:56)
[2017-06-21] MEDS: AZELASTINE HCL 0.1 % NASAL SPRAY SCH (07:57)
[2017-06-21] MEDS: RANITIDINE HCL 150 MG TAB PO SCH (07:57)
[2017-06-21] MEDS: LEVOCETIRIZINE 5 MG TABLET PO SCH (07:58)
[2017-06-21 09:38] LABS: POTASSIUM 4.3 mmol/L (3.5-5.1)
[2017-06-21] MEDS: METHYLPREDNISOLONE IV 60 MG in SYRINGE 0 ML IV SCH ×2 (09:41)
[2017-06-21] MEDS: LORAZEPAM 0.5 MG TAB PO PRN (09:46)
[2017-06-21] MEDS ORDERED: SPR25 PO (11:55)
[2017-06-21] MEDS ORDERED: LEVO5TAB7 PO (11:55)
--- NOTE | 2017-06-21 12:06 | Discharge Instructions ---
Discharge Instructions Date of Service June 21, 2017. Admission Reason for Admission: Flare-Up of asthma, difficulty breathing Discharge Discharge Diagnosis / Problem: 1. Asthma flare - resolved. 2. diastolic dysfunction with fluid retention Discharge Goals Goal(s): Learn about illness, Diagnostic testing, Therapeutic intervention Activity Recommendations Activity Limitations: resume your previous activity (as tolerated ) . Instructions / Follow-Up Instructions / Follow-Up From Dr. Alvarado - You were treated for a combination of several things including asthma exacerbation ("flare") and fluid retention in the lungs from diastolic dysfunction. You improved with IV steroids, nebulizer treatments, antibiotics, and diuretic pills. 1. Diastolic dysfunction - this type of heart condition will make you susceptible to fluid retention in the lungs, abdomen, and legs. It is important to follow a low salt diet, limit your fluid intake, and check your weight every day at home on the same scale. Please do the following - Call your Primary Care doctor or wood calker if any of the following symptoms or problems start or get worse: * Shortness of breath or difficulty breathing * Wake up at night short of breath * Chest pain * Cough * Swelling of your hands, feet, or legs * More fatigued or tired with your normal activity * Palpitations - sudden fast heart beats WEIGHT * Weigh yourself every morning after using the bathroom. * Use the same scale. * Wear the same amount of clothing. * Write your weight down on a chart. * Call your Primary Care doctor if you gain more than 5 pounds in 1-2 days. This could be a sign you are taking on fluid weight. * If you do in fact have weight gain then start the spironolactone diuretic * Take the spironolactone every morning until your weight is back down to your 'dry weight' * If you have to take spironolactone it is best to let your doctors know about this MEDICATIONS * Use this discharge instruction sheet for medication instructions. * Take your medications at the time your doctor ordered. * Do not skip a dose of your medicines. * If you miss a dose of medicine, take it as soon as possible, but DO NOT DOUBLE A DOSE. * Read your medicine information when you get home. * Know all of the side effects of your medicine. If in doubt, ask your pharmacist * Call your Primary Care doctor's office if you have any side effects. * Be sure all of your doctors know what medicine and herbs you take (including cold, flu, and herbal medicine). Take the following with you to your follow-up doctor appointments: * Weight Chart * Medication List * List of questions Do not drink excessive alcohol, beer or wine. 2. Asthma with exacerbation - likely that either a virus or an allergen ( example: pollen) triggered your asthma. You improved nicely with steroids IV. Please continue on all of your normal asthma and allergy medications as previous. 3. Elevated blood pressure - throughout your stay your blood pressures were often high. Some of the high readings could have been due to the use of steroids. With that said I would recommend you check your blood pressure at home once a day and keep a log of your values. Please show these values to your family doctor for their review. Know that elevated blood pressures will make diastolic dysfunction worse. 4. Sinus issues - know that your CAT scan of the sinuses was normal. 5. Follow-up - * see your family doctor on Friday of this coming week as scheduled * see Dr. Lua within 1-2 weeks 6. Return to [facility] if - * you have worsening shortness of breath * you have chest pain * you have worsening swelling or weight gain and it doesn't seem to be responding to the spironolactone * you have fever over 100.4 degrees * any other concerns Current Hospital Diet Patient's current hospital diet: Regular Diet Discharge Diet Recommended Diet: AHA Diet (Heart Healthy) Fluid Restriction: 2000 ml (8 cups) Procedures Procedures Performed: 1. CAT scan of sinuses - normal sinuses, no evidence of any sinusitis 2. multiple chest x-rays showing fluid in the lungs from diastolic dysfunction Pending Studies Studies pending at discharge: no Laboratory Results Hemoglobin A1c Test 06/16/17 06:21 Range/Units Estimated Average Glucose 131 mg/dl Hemoglobin A1c 6.2 H 4.5-5.6 % Medical Emergencies . Who to Call and When: Call 911 or go to the Emergency Room if: * If at any time you feel your situation is an emergency * You have tightness or pain in your chest that does not go away with rest or Nitroglycerin * You are very short of breath even with rest . Non-Emergent Contact Non-Emergency issues call your: Primary Care Provider, Grind Operator Call Non-Emergent contact if: temperature is above 100.5, you have any medication questions . . "Provider Documentation" section prepared by Bakari Alvarado. .
[2017-06-21 12:50] VITALS: O2SAT 91
[2017-06-21 13:16] VITALS: BP 187/82; PULSE 90; TEMP 36.8; O2SAT 91
--- NOTE | 2017-06-21 19:05 | Discharge Summary ---
"Discharge Summary Date of Service June 21, 2017. Discharge Summary Admission Date: June 12, 2017 at 15:32 Discharge Date: June 21, 2017 Discharge Disposition: Home Principal Diagnosis: acute hypoxic respiratory failure Problems/Secondary Diagnoses: 1. asthma with exacerbation 2. acute/chronic diastolic CHF 3. morbid obesity with BMI 62 4. severe allergic rhinitis 5. pre-T2DM 6. Ehler's Danlos 7. KENNETH on night-time [place] oxygen 8. dyslipidemia 9. history of hypothyroidism 10. history of depression 11. GERD 12. anxiety Procedures: 1. CT sinuses - IMPRESSION: 1. No current evidence of acute or chronic sinusitis. 2. Postsurgical changes of uncinectomies and ethmoidectomies. 3. Minimal scattered mucosal thickening. 4. No significant anatomic variant. 2. chest x-rays with pulmonary edema Medication Reconciliation New Medications: Spironolactone (Spironolactone) 25 Mg Tab 25 MG PO QAM PRN for fluid/edema, #30 TABS 1 Refill Changed Medications: Levocetirizine Dihydrochloride (Xyzal Allergy 24Hr) 5 Mg Tab 5 MG PO BID, #60 TABS 2 Refills (Changed from: QD; Refills: ) Continued Medications: Albuterol Hfa (Ventolin Hfa) 200 Puffs/33430 Mcg Aers 2 PUFFS PO Q6 PRN for SOB/Wheezing Azelastine Hcl (Astelin Nasal [place]) 200 Sprays/30 Ml [place] 2 SPRAYS TANI BID, #30 Lorazepam (Lorazepam) 0.5 Mg Tab 0.5 MG PO Q6 PRN for Anxiety Montelukast Sod (Montelukast Sodium) 10 Mg Tab 10 MG PO HS, #30 Nystatin/Triamcinolone (Mycolog ||) Cr PRN for YEAST Omeprazole (Prilosec) 20 Mg Cap 20 CAP PO DAILY, CAP Paroxetine (Paxil) 40 Mg Tab 40 MG PO DAILY, TAB TAKE WITH THE 10MG TABLET FOR A TOTAL DOSE OF 50MG DAILY Probiotic Product (Probiotic Complex/Acidoph) 1 Cap Cap PO QD Ranitidine (Zantac) 300 Mg Tab 300 MG PO QD PRN for BID, TAB Tramadol (Ultram) 50 Mg Tab 50 MG PO Q8H PRN for Pain, TAB [Vit Dvit D] () 6000 PO PRN for QD Discontinued Medications: Azithromycin (Zithromax) 250 Mg Tab 250 CAP PO DIRECTED, #4 TAB Referrals At Discharge Follow up Referrals: Physician Referral - Please Call For Appointment with Aggie Dawson, DO Discharge Exam Physical Exam: General Appearance: no apparent distress, + obese ENT: hearing grossly normal, pharynx normal (no evidence of angioedema/ swelling, mild cobblestoning of pharyngeal wall only) Neck: no JVD Respiratory/Chest: lungs clear, no respiratory distress, no accessory muscle use, + decreased breath sounds (bases) Cardiovascular: regular rate, rhythm, no gallop, no murmur, normal peripheral pulses Abdomen / GI: normal bowel sounds, non tender, soft, no organomegaly Extremities: no pedal edema Neurologic/Psychiatric: alert, oriented x 3 Skin: no rash Hospital Course HISTORY OF PRESENT ILLNESS: 47yo female with history of asthma, morbid obesity, Ehler's Danlos, and allergies who presented with complaints of worsening shortness of breath on exertion, productive cough, and wheezing. She was recently treated for acute bronchitis/asthma exacerbation , sinus infection, and ear infection several days prior to admission. She took azithromycin for 2 days for the above complaints. She reported that her ear was feeling better but her cough was getting worse with yellow and green sputum. She came to [facility] via EMS and en route received duoneb with mild improvement in symptoms. Additionally she reported wheezing, occasional chest tightness, and fatigue. She admitted to a 7-8 pound weight gain several days prior to admission as well. HOSPITAL COURSE: The patient's admission chest x-ray showed possible pulmonary edema as well as cardiomegaly. It was unclear if the chest x-ray findings represented atypical pneumonia or CHF. She was placed on IV antibiotics, IV steroids, and scheduled nebs. Despite the above she made little improvement over her first 2 days in the hospital. Outpatient records were reviewed and in March 2017 she had undergone echocardiogram showing preserved ejection fraction but grade 2 diastolic dysfunction. Therefore, she was placed on low-dose diuretics and had a robust response to such. She clinically and radiographically improved after several days of diuresis. The patient refused lasix due to her severe sulfa allergy and theoretical risk of cross-reactivity with loop diuretics. As a result ethacrynic acid was used. Oxygen was gradually weaned off and her lung exam continued to improve. The patient had issues with her allergies while hospitalized, some of which was likely due to pollen and dust that entered her room as a result of construction being done on neighboring patient rooms (including hospital windows). There was transient concern that perhaps the ethacrynic acid was the cause of her upper airway symptoms (patient reported throat swelling, etc) but this was felt unlikely. Additionally the patient never had evidence of angioedema on examination. CT sinuses was nearly completely normal. The patient completed a full 7-day course of IV/PO antibiotics while here although a discrete pneumonic infiltrate was not seen on imaging. She also completed 7+ days of IV steroids. Since the patient cannot tolerate oral steroids these were deferred at time of discharge. It was suspected that her acute hypoxic respiratory failure was likely from a combination of asthma exacerbation as well as acute/chronic diastolic CHF. She was given CHF instructions at discharge and was asked to check her weight daily at home. She was advised that if her weight laurita more than 5 pounds over 1-2 days then she should start aldactone 25mg. She was given counseling about salt & fluid restriction. If the patient needs additional diuretics at home ethacrynic acid could be added as she tolerated this well and had good response to such. Lastly, the patient requested guidance on weight loss as she had trouble securing an appointment with the local bariatric specialist. The patient was given Dr. Aggie Dawson's name for possible referral. She was also encouraged to see Dr. Rigoberto Lua, her primary net mobile developer, within 1-2 weeks of discharge. Total Time Spent: Greater than 30 minutes This includes examination of the patient, discharge planning, medication reconciliation, and communication with other providers. Discharge Instructions Please refer to the electronic Patient Visit Report (Discharge Instructions) for additional information. Follow-Up see BARBARA Cuellar, on Friday06/23/17 - as scheduled see Dr. Rigoberto Lua, Pulmonary, within 1-[address] Aggie Dawson at her convenience to discuss weight loss strategies Additional Copies To Dante Echeverria M.D.; Aggie Dawson, ; Rigoberto Lua M.D.; Louann Canela, [email or web address]"
== END 2017-06-21 15:00 | disposition home or self-care (01) | DRG 202 ==
LOC: EDBD 11:39 → C.EDC 11:40 → C.2T 15:32 → ENRESERV 16:05 → UNDODISIN 06-13 16:35 → C.2T 06-14 18:58 → ENRESERV 06-16 18:35 → C.MS2W 06-16 20:42
PROVIDERS: ADMIT Hospitalist; ATTEND Internal Medicine
DX: J45.901 Unspecified asthma with (acute) exacerbation (principal); J96.01 Acute respiratory failure with hypoxia; I50.33 Acute on chronic diastolic (congestive) heart failure; J44.1 Chronic obstructive pulmonary disease with (acute) exacerbation; Q79.6 Ehlers-Danlos syndromes; Z68.44 Body mass index [BMI] 60.0-69.9, adult; E03.9 Hypothyroidism, unspecified; F32.9 Major depressive disorder, single episode, unspecified; E66.01 Morbid (severe) obesity due to excess calories; G47.33 Obstructive sleep apnea (adult) (pediatric); K21.0 Gastro-esophageal reflux disease with esophagitis; K44.9 Diaphragmatic hernia without obstruction or gangrene; E55.9 Vitamin D deficiency, unspecified; J45.909 Unspecified asthma, uncomplicated; F41.1 Generalized anxiety disorder; I11.0 Hypertensive heart disease with heart failure; R51 Headache; R73.9 Hyperglycemia, unspecified; R73.03 Prediabetes; T78.40XA Allergy, unspecified, initial encounter; Z88.5 Allergy status to narcotic agent; Z91.040 Latex allergy status; Z88.6 Allergy status to analgesic agent; Z88.2 Allergy status to sulfonamides; Z88.0 Allergy status to penicillin; Z87.891 Personal history of nicotine dependence; Z83.3 Family history of diabetes mellitus; Z82.49 Family history of ischemic heart disease and other diseases of the circulatory system; Z82.0 Family history of epilepsy and other diseases of the nervous system; Z80.9 Family history of malignant neoplasm, unspecified

== ENCOUNTER 2017-10-06 08:29 | Emergency (ER) | payer OTHER ==
[~2017-10-06] VITALS: Ht 149.9 cm; Wt 140.0 kg
[~2017-10-06 08:29] MED LIST changes: -CETITAB27 PO; +FURO-85 PO
[2017-10-06 08:33] VITALS: TEMP 36.9; O2SAT 97; Ht 149.9 cm; Wt 140.0 kg
[2017-10-06] MEDS ORDERED: NYST100010 TOP (08:58)
[2017-10-06] MEDS ORDERED: CHOL20007 PO (08:58)
[2017-10-06] MEDS ORDERED: MULT-506 PO (08:58)
--- NOTE | 2017-10-06 09:00 | EMERGENCY ROOM VISIT NOTE ---
History Report prepared by Jaclyn: Eldon Nix Under the Supervision of: Dr. Michael West D.O. First contact with patient: 08:43 Chief Complaint: SHOULDER PAIN Stated Complaint: RIGHT ARM AND SHOULDER PAIN History of Present Illness The patient is a 47 year old female who presents to the Emergency Room with complaints of constant right shoulder pain beginning a week ago. The patient states that she was driving back and forth recently to visit her mother in the hospital. She notes that she was reaching for gum as she was driving and felt "something snap in her right shoulder." She reports that she woke up yesterday and she states that her shoulder was "locked" at that time. The patient notes that she has been wearing a sling, but she reports that wearing the sling was causing her pain to worsen yesterday. She rates her pain as a 10/10. She states that she tore her left rotator cuff earlier this year and has been doing physical therapy. The patient also complains of carpal tunnel and Moshe Danlos. Source of History: patient Onset: a week ago Position: shoulder (right) Symptom Intensity: 10/10 Timing: constant Modifying Factors (Worsening): other (wearing a sling) Review of Systems See HPI for pertinent positives & negatives. A total of 10 systems reviewed and were otherwise negative. Past Medical & Surgical Medical Problems: (1) Carpal tunnel syndrome (2) Diaphragmatic Hernia (3) Moshe-Danlos Syndrome (4) Hyperlipidemia, Unspecified (5) Hypothyroidism, Unspecified (6) Major Depressive Disorder, Single Episode, Unspecified (7) Morbid obesity with BMI of 60.0-69.9, adult (8) Obstructive Sleep Apnea (Adult) (Pediatric) (9) possible copd exac with hx of asthma and tob abuse (10) Reflux Esophagitis (11) Thyroid dysfunction (12) Torn rotator cuff (13) Vitamin D Deficiency, Unspecified Surgical Problems: (1) H/O removal of cyst Family History FH: cancer FH: diabetes mellitus FH: hypertension FH: seizures Social History Smoking Status: Current Every Day Smoker Alcohol Use: none Drug Use: none Marital Status: Housing Status: lives with family Occupation Status: unemployed Current/Historical Medications Scheduled Azelastine Hcl (Astelin Nasal Spade), 2 SPRAYS TANI BID Cholecalciferol (Vitamin D3), 6,000 UNITS PO DAILY Furosemide (Lasix), 20 MG PO UD Levocetirizine Dihydrochloride (Xyzal Allergy 24Hr), 5 MG PO BID Montelukast Sod (Montelukast Sodium), 10 MG PO HS Multivitamin (Multivitamin), 1 TAB PO DAILY Paroxetine (Paxil), 40 MG PO DAILY Probiotic Product (Probiotic Complex/Acidoph), PO QD Scheduled PRN Albuterol Hfa (Ventolin Hfa), 2 PUFFS PO Q6 PRN for SOB/Wheezing Lorazepam (Lorazepam), 0.5 MG PO Q6 PRN for Anxiety Nystatin (Topical) (Nystop), 1 APPLN TOP UD PRN for yeast Ranitidine (Zantac), 300 MG PO BID PRN for acid Tramadol (Ultram), 50 MG PO Q8H PRN for Pain Allergies Coded Allergies: Tomato (Verified Allergy, Severe, ., 10/06/17) Adhesives (Unverified Allergy, Intermediate, RASH, 10/06/17) Spironolactone (Unverified Allergy, Intermediate, SHORTNESS OF BREATH, ) Ibuprofen (Unverified Allergy, Unknown, UNKNOWN, 10/06/17) Penicillins (Verified Allergy, Unknown, Unknown, 10/06/17) Reported by PT Quinolones (Unverified Allergy, Unknown, muscle/tendon damage, 10/06/17) Uncoded Nonscreenable Allergen (Unverified Allergy, Unknown, ORAL STEROIDS , 10/06/17) Vitamin B12 (Verified Adverse Reaction, Intermediate, NEURO SYMPTOMS, 10/06) Codeine (Verified Adverse Reaction, Unknown, Nausea/Vomiting, 10/06/17) Reported by PT Uncoded Allergies: FRAGRANCES (Allergy, Mild, WHEEZES, 01/08/17) LATEX ALLERGY (Allergy, Mild, RASH ITCHING, 01/08/17) SULFA DRUGS (Allergy, Unknown, ANAPHYLAXIS, 06/13/17) Physical Exam Vital Signs Date Time Temp Pulse Resp B/P (MAP) Pulse Ox O2 Delivery O2 Flow Rate FiO2 10/06/17 10:24 79 19 145/90 10/06/17 08:33 36.9 78 18 148/93 97 Room Air Physical Exam CONSTITUTIONAL/VITAL SIGNS: Reviewed / noted above. GENERAL: Non-toxic in appearance. INTEGUMENTARY: Warm, dry, and [place]. HEAD: Normocephalic. EYES: without scleral icterus or trauma. ENT/OROPHARYNX: clear and moist. LYMPHADENOPATHY/NECK: Is supple without lymphadenopathy or meningismus. RESPIRATORY: Lungs clear and equal. CARDIOVASCULAR: Regular rate and rhythm. GI/ABDOMEN: Soft and nontender. No organomegaly or pulsatile mass. No rebound or guarding. Normal bowel sounds. EXTREMITIES: Warm and well perfused. Limited ROM in right shoulder due to discomfort. BACK: No CVA tenderness. NEUROLOGICAL: Intact without focal deficits. PSYCHIATRIC: normal affect. MUSCULOSKELETAL: Normally developed with good muscle tone. Medical Decision & Procedures ER Provider Diagnostic Interpretation: Radiology results as stated below per my review and radiologist interpretation: R SHOULDER MIN 2 VIEWS ROUTINE DISCUSSION: No fractures or dislocations are visualized. There are peritendinous calcification suspicious for calcific tendinitis. There is slight widening of the joint finding which may indicate a joint effusion. IMPRESSION: 1. No acute fractures or dislocations identified 2. Possible joint effusion 3. Suspected calcific tendinitis Electronically signed by: Oli Pink M.D. 10/06/2017 9:12 AM ED Course 0846: Previous medical records were reviewed. The patient was evaluated in room A11. A complete history and physical examination was performed. 1010: On reevaluation, the patient is stable. I discussed the results and findings with the patient. She verbalized agreement of the treatment plan. The patient was discharged home. Medical Decision Differential diagnosis: Etiologies such as fracture, dislocation, neurovascular compromise, compartment syndrome, soft tissue injury, as well as others were entertained. This is a 47-year-old female who presents to the ED with a chief complaint of right shoulder pain. The patient states that her pain worsened last week when she was stretching and reaching for something. She has had increased pain over the past couple of days. It is worse with movement. She reports a burning sensation. Denies any localized trauma. Her physical exam as noted above. She does have decreased range of motion due to discomfort. No obvious abnormality on palpation. An x-ray reveals findings suggesting a possible joint effusion and calcific tendinitis. The patient's initial blood pressure was slightly elevated. This was probably due to pain. She did not want pain medication here. She has been going to physical therapy for other things. I did recommend that she see the therapist for this as well as Dr. Benavides. She is felt to be stable for discharge. Medication Reconcilliation Current Medication List: was personally reviewed by me Blood Pressure Screening Patient's blood pressure: Elevated blood pressure Blood pressure disposition: Elevated BP felt to be situational Impression Primary Impression: Right shoulder pain Additional Impression: Calcific tendinitis of right shoulder Scribe Attestation The scribe's documentation has been prepared under my direction and personally reviewed by me in its entirety. I confirm that the note above accurately reflects all work, treatment, procedures, and medical decision making performed by me. Departure Information Dispostion Home / Self-Care Referrals Dante Echeverria M.D. (PCP) Forms HOME CARE DOCUMENTATION FORM, IMPORTANT VISIT INFORMATION Patient Instructions My [facility] Additional Instructions Follow-up with physical therapy as well as Dr. Benavides for your symptoms. Your x-ray suggests that you have a condition called calcific tendinitis. Treatment options include painkillers, physical therapy, steroid injections and even surgery. Talk to Dr. Benavides about this. Take your Ultram as needed for pain. Problem Qualifiers
--- NOTE | 2017-10-06 09:14 | DIAGNOSTIC IMAGING REPORT ---
R SHOULDER MIN 2 VIEWS ROUTINE CLINICAL HISTORY: Right shoulder pain COMPARISON: None. DISCUSSION: No fractures or dislocations are visualized. There are peritendinous calcification suspicious for calcific tendinitis. There is slight widening of the joint finding which may indicate a joint effusion. IMPRESSION: 1. No acute fractures or dislocations identified 2. Possible joint effusion 3. Suspected calcific tendinitis Electronically signed by: Oli Pink M.D. 10/06/2017 9:12 AM Dictated Date/Time: 10/06/2017 9:11 AM
[2017-10-06 10:24] VITALS: BP 145/90; PULSE 79
== END 2017-10-06 10:45 | disposition home or self-care (01) ==
LOC: C.EDB 08:30 → C.EDA 10:45
DX: M75.31 Calcific tendinitis of right shoulder (principal); G56.00 Carpal tunnel syndrome, unspecified upper limb; E78.5 Hyperlipidemia, unspecified; E03.9 Hypothyroidism, unspecified; F32.9 Major depressive disorder, single episode, unspecified; F17.210 Nicotine dependence, cigarettes, uncomplicated; E66.01 Morbid (severe) obesity due to excess calories; G47.33 Obstructive sleep apnea (adult) (pediatric); K21.9 Gastro-esophageal reflux disease without esophagitis; E55.9 Vitamin D deficiency, unspecified; Z80.9 Family history of malignant neoplasm, unspecified; Z83.3 Family history of diabetes mellitus; Z82.49 Family history of ischemic heart disease and other diseases of the circulatory system; Z82.0 Family history of epilepsy and other diseases of the nervous system; Z79.899 Other long term (current) drug therapy; Z91.018 Allergy to other foods; Z91.048 Other nonmedicinal substance allergy status; Z88.0 Allergy status to penicillin; Z88.2 Allergy status to sulfonamides; Z91.040 Latex allergy status; Z88.5 Allergy status to narcotic agent; Z88.8 Allergy status to other drugs, medicaments and biological substances